=== PATIENT | female | born 1995 | race Caucasian/White ===

== ENCOUNTER → 2021-07-04 14:47 | Outpatient (CLI) | payer OTHER, SELFPAY ==
[2021-07-04 15:22] LABS: Add Manual Diff / Slide Review NO; Basophils Absolute Auto 0 /uL (0-100); Basophils Percent Auto 0.4 % (0-2); Eosinophils Absolute Auto 100 /uL (0-450); Eosinophils Percent Auto 0.6 % (2-4); Hematocrit 38.3 % (36-46); Hemoglobin 13.3 g/dL (12.0-16.0); Lymphocytes Absolute Auto 1800 /uL (1100-4500); Lymphocytes Percent Auto 22.9 % (25-40); Mean Corpuscular HGB Conc 34.8 % (30-36); Mean Corpuscular Hemoglobin 32.7 PG (26-34); Mean Corpuscular Volume 94.1 fL (80-100); Monocytes Absolute Auto 500 /uL (0-900); Monocytes Percent Auto 6.7 % (3-14); Neutrophils Absolute Auto 5500 /uL (1500-7000); Neutrophils Percent Auto 69.4 % (50-75); Platelet Count 307 X10^3/uL (150-400); Red Blood Cell Count 4.07 X10^6/uL (4.0-5.2); Red Cell Distribution Width 12.2 % (11.6-14.8); White Blood Cell Count 7.9 X10^3/uL (4.5-11.0)
[2021-07-04 15:41] LABS: Appearance Urine UA CLEAR; Bilirubin Urine UA NEGATIVE (NEGATIVE); Color Urine UA YELLOW; Glucose Urine UA NEGATIVE (Negative); Ketones Urine UA NEGATIVE (NEGATIVE); Leukocyte Esterase Urine UA NEGATIVE (NEGATIVE); Nitrite Urine UA NEGATIVE (Negative); Occult Blood Urine UA 2+ (Negative); Protein Urine UA NEGATIVE (Negative); Urobilinogen Urine UA 0.2 E.U./dL (0.2)
[2021-07-04 16:02] LABS: Amorphous Sediment Urine 1+; Bacteria Urine Moderate (10-30); Mucus Urine 1+ (Negative); RBC Urine 1-5/HPF (0-5/HPF); Squamous Epithelial Cell Urine 5-10 /HPF (0-5/HPF); WBC Urine 1-5/HPF (0-5/HPF)
[2021-07-04 16:05] LABS: Free T4, Direct Thyroxine 0.96 ng/dL (0.78-2.19)
[2021-07-04 16:19] LABS: Thyroid Stimulating Hormone 0.936 uIU/mL (0.47-4.68)
[2021-07-04 17:17] LABS: HIV 1 & 2 Ab/Ag 4th Gen Combo NEGATIVE (NEGATIVE); Hep C Virus Ab w/Reflex Quant NEGATIVE s/c (NEGATIVE); Hepatitis B Surface Antigen NEGATIVE s/c (NEGATIVE); Rubella Antibody IgG 11.9 IU/mL (>15)
[2021-07-05 08:30] LABS: RPR Screen Non Reactive (Non Reactive); Varicella IgG Antibody 1566 index (Immune >165)
== END ==
PROVIDERS: PCP Nurse Practitioner Family; Referring Provider Family Medicine; Visit Provider Family Medicine
DX: Z34.01 Encounter for supervision of normal first pregnancy, first trimester (principal)
CPT/HCPCS: 36415; 80055; 81003; 81015; 84439; 84443; 86787; 86803; 86850; 86900; 86901; 87077; 87086; 87389

== ENCOUNTER 2021-07-26 08:15 | Outpatient (RCR) | payer OTHER, SELFPAY ==
--- NOTE | 2021-07-22 14:14 | PT.OIE ---
Current Diagnoses Low back pain (07/22/21) Past Medical History (Last Updated 07/05/21 @ 14:11 by Samanta Louis MD) Anxiety (~2008) Chicken pox (~1993) Chronic lower back pain Chronic migraine Depression (~2008) Headache (~2007) Heavy menstrual period (~2006) History of colonoscopy (~03/2016) History of esophagogastroduodenoscopy (EGD) (~03/2016) History of placement of ear tubes (~1994) History of recurrent ear infection History of tonsillectomy and adenoidectomy (~02/2002) Hypothyroid (~2008) Painful menstrual periods (~2006) S/P lumpectomy, right breast (~2016) Seizure (~2005) Seizure (~2018) Stress fracture of right femur (~2015) Stress fracture, left foot, initial encounter for fracture (~2015) [place] teeth extracted (~10/2012) Past Surgical History (Last Updated 06/26/21 @ 22:23 by Padmaja Carter) Anesthesia 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 Address: [address] [place] [address] [place], [address] Email: Samanta Louis MD Attending Provider Physician Referring Provider Specialty: [facility] Address: [address] [place] [address], [place], [address] Email: [email or web address] Physical Therapy Initial Evaluation PT-OP-A Visit Information Start: 07/22/21 07:21 Freq: Status: Active Protocol: Document 07/22/21 07:30 AMB (Rec: 07/22/21 08:59 AMB [email or web address]) Out-Patient Physical Therapy Visit Information Visit Information Visit Type Initial Evaluation Visit Start Time 07:30 Visit Stop Time 08:15 Total Visit Minutes 45 Visit Number 1 PT-OP-B Current Condition Start: 07/22/21 07:21 Freq: Status: Active Protocol: Document 07/22/21 07:30 AMB (Rec: 07/22/21 08:01 AMB [id number]) Current Condition History of Current Condition Onset Date 6 weeks ago Current Complaints low back pain History of Current Condition 12 weeks . Back pain at night. At night can get up to 7-8/10 pain, during day more like 1-3. Rolling over increases the pain. Left radiating pain was present prepregnancy. Sitting increases pain 30 min to an hour. Twisting increases pain . Treatment Goals Patient/Caregiver Goals Decrease back pain, exercise without an increase in pain. Prior Functional Status Baseline Function- ADL's Independent Baseline Function- Mobility Independent Personal Factors Other Personal Factors That May Effect Currently , due in Therapy/Recovery January PT-OP-C Subjective Start: 07/22/21 07:21 Freq: Status: Active Protocol: Document 07/22/21 07:30 AMB (Rec: 07/22/21 08:59 AMB [email or web address]) Patient Questionnaires Oswestry Low Back Index Oswestry Score 28 Oswestry Impairment 20 to 39% Impaired (Score 20- 39) OP-PT Pain Assessment Comments Pain Comments 3/10 current, can get up to 6- 7 with rolling over in bed PT-OP-G Mobility & Gait Start: 07/22/21 07:21 Freq: Status: Active Protocol: Document 07/22/21 07:30 AMB (Rec: 07/22/21 08:59 AMB [email or web address]) OP Mobility Evaluation Bed Mobility Rolling pain with rolling from back to sides, has to bridge a little to get hips up even on firm surface OP Gait Assessment Comments Gait Comments WFL PT-OP-J Posture/Palpation/Skin Start: 07/22/21 07:21 Freq: Status: Active Protocol: Document 07/22/21 07:30 AMB (Rec: 07/22/21 08:59 AMB [email or web address]) Posture Evaluation Comments Posture Comments slight lumbar lordosis, tends to be hyper mobile in elbows/ knees Palpation Assessment Location One Palpation Location lumbar spine Palpation Findings Soft Tissue Tightness,Spasm, Muscle Guarding,Tenderness Palpation Details Tenderness at QLs bilaterally, tightness. Slightly elevated ASIS and medial malleolus on the left. PT-OP-K Range of Motion Start: 07/22/21 07:21 Freq: Status: Active Protocol: Document 07/22/21 07:30 AMB (Rec: 07/22/21 08:59 AMB [email or web address]) Lumbar Spine Range of Motion Lumbar Spine Active Percentage Testing Position Standing Flexion 100 Extension 100 Rotation Left 75 Rotation Right 50 Comments pain with end range extension and right rotation PT-OP-M Strength Start: 07/22/21 07:21 Freq: Status: Active Protocol: Document 07/22/21 07:30 AMB (Rec: 07/22/21 08:59 AMB [email or web address]) Hip Strength Hip Manual Muscle Testing Right Flexion (L2) 4+ Good+ Extension (S1) 4+ Good+ Abduction 4+ Good+ Left Flexion (L2) 4+ Good+ Extension (S1) 4+ Good+ Abduction 4+ Good+ PT-OP-Q Treatments Start: 07/22/21 07:21 Freq: Status: Active Protocol: Document 07/22/21 07:30 AMB (Rec: 07/22/21 08:59 AMB [email or web address]) Therapeutic Exercises Other Exercises 3 Other Exercise Name quadruped TA and pelvic floor contract Comments with alternating arms 2 Other Exercise Name cat cow Reps/Minutes 10x2 1 Other Exercise Name radha pose with sidebend Reps/Minutes 30x4 PT-OP-T Assessment and Plan Start: 07/22/21 07:21 Freq: Status: Active Protocol: Document 07/22/21 07:30 AMB (Rec: 07/22/21 08:59 AMB [email or web address]) Physical Therapy Assessment Rehab Potential Rehabilitation Potential Good Evaluation Complexity Number of Personal Factors/Comorbidities 1-2 Number of Body Systems Impaired 4 or More Clinical Presentation at Evaluation Evolving Impairments Impairments Activity Tolerance,Functional Mobility,Pain,ROM Goals Three Impairment ROM Short Term Goal (STG) Tawana will have normal lumbar /thoracic rotation. STG Duration 4 weeks Fpc Goal (LTG) Tawana will be able to reach across her body to reach for her water bottle without an increase in pain. LTG Duration 12 weeks Two Impairment HEP Short Term Goal (STG) Tawana will be independent with a HEP for core stabilization and appropriate stretching program. STG Duration 4 weeks One Impairment Bed mobility Short Term Goal (STG) Tawana will roll over in bed with 1/10 pain or less. STG Duration 4 weeks Cell Tower Climber Goal (LTG) Tawana will perform all bed mobility without back pain. LTG Duration 8 weeks Assessment Summary Assessment Tawana attends physical therapy with low back pain, worst with rolling over in bed . She has a history of back pain before becoming with radiating sx into the left buttock, but this is different. Does seem to be improving with heat. Tawana had signficant muscular tension in her bilateral quadratus lumborum. She tends to be fairly hypermobile baseline, and has likely already increased this. Educated her in the muscle guarding that can occur with increasing ligamentous laxity associated with . She had a large number of questions regarding exercise in which were answered. She will benefit from continued instruction in stretching and core stabilization as well as exercise in . Physical Therapy Plan Frequency and Duration Frequency of Treatment 1x/Week Duration of Treatment 12 weeks Plan of Care Start Date 07/22/21 Plan of Care End Date 10/14/21 Therapeutic Interventions Therapeutic Interventions Aquatic Therapy,Home Exercise Program,Joint Mobilizations, Manual Therapy,Neuromuscular Re-education,Self-Care/Home Management,Therapeutic Activities,Therapeutic Exercises Modalities Cold Pack/Ice Massage,Electric Stimulation,Hot Packs Next Visit Focus/Plan Next Note Type Treatment Note Next Visit Plan Work on core stabilization, QL stretching
--- NOTE | 2021-07-22 14:15 | PT.OPPOC ---
Physical, Occupational & Speech Therapy At [facility] Current Diagnoses Low back pain (07/22/21) Visit Care Team Role Provider Type JORGE Al Primary Care Provider Non-Staff Specialty: Family Practice Address: [place], [address] Email: Samanta Louis MD Attending Provider Physician Referring Provider Specialty: Family Practice Address: [address] [place] [address], [facility] [place], [address] Email: [email or web address] Plan Of Care PT-OP-T Assessment and Plan Start: 07/22/21 07:21 Freq: Status: Active Protocol: Document 07/22/21 07:30 AMB (Rec: 07/22/21 08:59 AMB [email or web address]) Physical Therapy Assessment Rehab Potential Rehabilitation Potential Good Evaluation Complexity Number of Personal Factors/Comorbidities 1-2 Number of Body Systems Impaired 4 or More Clinical Presentation at Evaluation Evolving Impairments Impairments Activity Tolerance,Functional Mobility,Pain,ROM Goals Three Impairment ROM Short Term Goal (STG) Tawana will have normal lumbar /thoracic rotation. STG Duration 4 weeks Carousel Attendant Goal (LTG) Tawana will be able to reach across her body to reach for her water bottle without an increase in pain. LTG Duration 12 weeks Two Impairment HEP Short Term Goal (STG) Tawana will be independent with a HEP for core stabilization and appropriate stretching program. STG Duration 4 weeks One Impairment Bed mobility Short Term Goal (STG) Tawana will roll over in bed with 1/10 pain or less. STG Duration 4 weeks Halfway Goal (LTG) Tawana will perform all bed mobility without back pain. LTG Duration 8 weeks Assessment Summary Assessment Tawana attends physical therapy with low back pain, worst with rolling over in bed . She has a history of back pain before becoming with radiating sx into the left buttock, but this is different. Does seem to be improving with heat. Tawana had significant muscular tension in her bilateral quadratus lumborum. She tends to be fairly hypermobile baseline, and has likely already increased this. Educated her in the muscle guarding that can occur with increasing ligamentous laxity associated with . She had a large number of questions regarding exercise in which were answered. She will benefit from continued instruction in stretching and core stabilization as well as exercise in . Physical Therapy Plan Frequency and Duration Frequency of Treatment 1x/Week Duration of Treatment 12 weeks Plan of Care Start Date 07/22/21 Plan of Care End Date 10/14/21 Therapeutic Interventions Therapeutic Interventions Aquatic Therapy,Home Exercise Program,Joint Mobilizations, Manual Therapy,Neuromuscular Re-education,Self-Care/Home Management,Therapeutic Activities,Therapeutic Exercises Modalities Cold Pack/Ice Massage,Electric Stimulation,Hot Packs Next Visit Focus/Plan Next Note Type Treatment Note Next Visit Plan Work on core stabilization, QL stretching Plan of Care Dates Plan of Care Start Date 07/22/21 Plan of Care End Date 10/14/21 Electronically Signed by: Roya Marshall, PT 07/22/21 [id number] Please Sign and Return: I have reviewed this Plan of Care and certify that the skilled therapy services above are required to meet the patient?s needs. Physician Signature Date Printed Name and Credentials Clinical Instructor Signature Printed Name and Credentials
--- NOTE | 2021-07-26 15:37 | PT.OTN ---
Current Diagnoses Low back pain (07/26/21) Physical Therapy Treatment Note PT-OP-A Visit Information Start: 07/22/21 07:21 Freq: Status: Active Protocol: Document 07/26/21 08:15 AMB (Rec: 07/26/21 09:04 AMB [id number]) Out-Patient Physical Therapy Visit Information Visit Information Visit Type Treatment Note Visit Start Time 08:15 Visit Stop Time 09:00 Total Visit Minutes 45 Visit Number 2 PT-OP-B Current Condition Start: 07/22/21 07:21 Freq: Status: Active Protocol: Document 07/22/21 07:30 AMB (Rec: 07/22/21 08:01 AMB [id number]) Current Condition History of Current Condition Onset Date 6 weeks ago Current Complaints low back pain History of Current Condition 12 weeks . Back pain at night. At night can get up to 7-8/10 pain, during day more like 1-3. Rolling over increases the pain. Left radiating pain was present prepregnancy. Sitting increases pain 30 min to an hour. Twisting increases pain . Treatment Goals Patient/Caregiver Goals Decrease back pain, exercise without an increase in pain. Prior Functional Status Baseline Function- ADL's Independent Baseline Function- Mobility Independent Personal Factors Other Personal Factors That May Effect Currently , due in Therapy/Recovery January PT-OP-C Subjective Start: 07/22/21 07:21 Freq: Status: Active Protocol: Document 07/26/21 08:15 AMB (Rec: 07/26/21 09:04 AMB [id number]) OP-PT Subjective Patient Comments Patient Comments Pt is noticing a bit of symptom improvement PT-OP-G Mobility & Gait Start: 07/22/21 07:21 Freq: Status: Active Protocol: Document 07/22/21 07:30 AMB (Rec: 07/22/21 08:59 AMB [email or web address]) OP Mobility Evaluation Bed Mobility Rolling pain with rolling from back to sides, has to bridge a little to get hips up even on firm surface OP Gait Assessment Comments Gait Comments WFL PT-OP-J Posture/Palpation/Skin Start: 07/22/21 07:21 Freq: Status: Active Protocol: Document 07/22/21 07:30 AMB (Rec: 07/22/21 08:59 AMB [email or web address]) Posture Evaluation Comments Posture Comments slight lumbar lordosis, tends to be hyper mobile in elbows/ knees Palpation Assessment Location One Palpation Location lumbar spine Palpation Findings Soft Tissue Tightness,Spasm, Muscle Guarding,Tenderness Palpation Details Tenderness at QLs bilaterally, tightness. Slightly elevated ASIS and medial malleolus on the left. PT-OP-K Range of Motion Start: 07/22/21 07:21 Freq: Status: Active Protocol: Document 07/22/21 07:30 AMB (Rec: 07/22/21 08:59 AMB [email or web address]) Lumbar Spine Range of Motion Lumbar Spine Active Percentage Testing Position Standing Flexion 100 Extension 100 Rotation Left 75 Rotation Right 50 Comments pain with end range extension and right rotation PT-OP-M Strength Start: 07/22/21 07:21 Freq: Status: Active Protocol: Document 07/22/21 07:30 AMB (Rec: 07/22/21 08:59 AMB [email or web address]) Hip Strength Hip Manual Muscle Testing Right Flexion (L2) 4+ Good+ Extension (S1) 4+ Good+ Abduction 4+ Good+ Left Flexion (L2) 4+ Good+ Extension (S1) 4+ Good+ Abduction 4+ Good+ PT-OP-Q Treatments Start: 07/22/21 07:21 Freq: Status: Active Protocol: Document 07/26/21 08:15 AMB (Rec: 07/26/21 15:37 AMB [email or web address]) Therapeutic Exercises Supine Exercises 1 Supine Exercise Name march with TA stabilization Sidelying Exercises 1 Sidelying Exercise Name QL stretch Reps/Minutes 30x2 Other Exercises 3 Other Exercise Name quadruped TA and pelvic floor contract Comments with alternating arms 2 Other Exercise Name cat cow Reps/Minutes 10x2 1 Other Exercise Name radha pose with sidebend Reps/Minutes 30x4 PT-OP-T Assessment and Plan Start: 07/22/21 07:21 Freq: Status: Active Protocol: Document 07/26/21 08:15 AMB (Rec: 07/26/21 09:04 AMB [id number]) Physical Therapy Assessment Assessment Summary Assessment Tawana is going on a trip to visit family so won't be available for appointments for a while. Exercises are going well, continue to progress QL stretching and core stability . Physical Therapy Plan Next Visit Focus/Plan Next Note Type Treatment Note Next Visit Plan Work on core stabilization, QL stretching
--- NOTE | 2021-08-29 14:56 | PT.OTN ---
Current Diagnoses Low back pain (08/29/21) Physical Therapy Treatment Note PT-OP-A Visit Information Start: 07/22/21 07:21 Freq: Status: Active Protocol: Document 08/29/21 13:00 AMB (Rec: 08/29/21 13:45 AMB [id number]) Out-Patient Physical Therapy Visit Information Visit Information Visit Type Treatment Note Visit Start Time 13:00 Visit Stop Time 13:45 Total Visit Minutes 45 Visit Number 3 PT-OP-B Current Condition Start: 07/22/21 07:21 Freq: Status: Active Protocol: Document 07/22/21 07:30 AMB (Rec: 07/22/21 08:01 AMB [id number]) Current Condition History of Current Condition Onset Date 6 weeks ago Current Complaints low back pain History of Current Condition 12 weeks . Back pain at night. At night can get up to 7-8/10 pain, during day more like 1-3. Rolling over increases the pain. Left radiating pain was present prepregnancy. Sitting increases pain 30 min to an hour. Twisting increases pain . Treatment Goals Patient/Caregiver Goals Decrease back pain, exercise without an increase in pain. Prior Functional Status Baseline Function- ADL's Independent Baseline Function- Mobility Independent Personal Factors Other Personal Factors That May Effect Currently , due in Therapy/Recovery January PT-OP-C Subjective Start: 07/22/21 07:21 Freq: Status: Active Protocol: Document 08/29/21 13:00 AMB (Rec: 08/29/21 13:45 AMB [id number]) OP-PT Subjective Patient Comments Patient Comments LBP with going down into the left thigh. Rolling over in bed. PT-OP-G Mobility & Gait Start: 07/22/21 07:21 Freq: Status: Active Protocol: Document 07/22/21 07:30 AMB (Rec: 07/22/21 08:59 AMB [email or web address]) OP Mobility Evaluation Bed Mobility Rolling pain with rolling from back to sides, has to bridge a little to get hips up even on firm surface OP Gait Assessment Comments Gait Comments WFL PT-OP-J Posture/Palpation/Skin Start: 07/22/21 07:21 Freq: Status: Active Protocol: Document 07/22/21 07:30 AMB (Rec: 07/22/21 08:59 AMB [email or web address]) Posture Evaluation Comments Posture Comments slight lumbar lordosis, tends to be hyper mobile in elbows/ knees Palpation Assessment Location One Palpation Location lumbar spine Palpation Findings Soft Tissue Tightness,Spasm, Muscle Guarding,Tenderness Palpation Details Tenderness at QLs bilaterally, tightness. Slightly elevated ASIS and medial malleolus on the left. PT-OP-K Range of Motion Start: 07/22/21 07:21 Freq: Status: Active Protocol: Document 07/22/21 07:30 AMB (Rec: 07/22/21 08:59 AMB [email or web address]) Lumbar Spine Range of Motion Lumbar Spine Active Percentage Testing Position Standing Flexion 100 Extension 100 Rotation Left 75 Rotation Right 50 Comments pain with end range extension and right rotation PT-OP-M Strength Start: 07/22/21 07:21 Freq: Status: Active Protocol: Document 07/22/21 07:30 AMB (Rec: 07/22/21 08:59 AMB [email or web address]) Hip Strength Hip Manual Muscle Testing Right Flexion (L2) 4+ Good+ Extension (S1) 4+ Good+ Abduction 4+ Good+ Left Flexion (L2) 4+ Good+ Extension (S1) 4+ Good+ Abduction 4+ Good+ PT-OP-Q Treatments Start: 07/22/21 07:21 Freq: Status: Active Protocol: Document 08/29/21 13:00 AMB (Rec: 08/29/21 13:45 AMB [id number]) Therapeutic Exercises Sitting Exercises 1 Sitting Exercise Name modified pigeon Reps/Minutes 30x2 Other Exercises 4 Other Exercise Name hip waggle Reps/Minutes 30 1 Other Exercise Name radha pose with sidebend Reps/Minutes 30x4 Manual Therapy Treatment Soft Tissue Mobilization L glutes Mobilization Type Myofascial Release,Trigger Point Release Intensity/Depth Moderate Body Position Sidelying Comments tenderness over L piriformis Manual Traction long axis Details L Body Position Hooklying Comments pt has decreased pain afterwards. PT-OP-T Assessment and Plan Start: 07/22/21 07:21 Freq: Status: Active Protocol: Document 08/29/21 14:51 AMB (Rec: 08/29/21 14:53 AMB [email or web address]) Physical Therapy Assessment Goals Three Impairment ROM Short Term Goal (STG) Tawana will have normal lumbar /thoracic rotation. STG Duration 4 weeks Mcc Goal (LTG) Tawana will be able to reach across her body to reach for her water bottle without an increase in pain. LTG Duration 12 weeks Two Impairment HEP Short Term Goal (STG) Tawana will be independent with a HEP for core stabilization and appropriate stretching program. STG Duration 4 weeks One Impairment Bed mobility Short Term Goal (STG) Tawana will roll over in bed with 1/10 pain or less. STG Duration 4 weeks Automotive Title Clerk Goal (LTG) Tawana will perform all bed mobility without back pain. LTG Duration 8 weeks Assessment Summary Assessment Tawana's original pain complaints have improved, she can roll over in bed, but is having more sciatic pain on the left now. Physical Therapy Plan Next Visit Focus/Plan Next Note Type Treatment Note Next Visit Plan Work on core stabilization, QL stretching
--- NOTE | 2021-09-05 15:51 | PT.OTN ---
Current Diagnoses Low back pain (09/05/21) Physical Therapy Treatment Note PT-OP-A Visit Information Start: 07/22/21 07:21 Freq: Status: Active Protocol: Document 09/05/21 12:56 AMB (Rec: 09/05/21 13:55 AMB [id number]) Out-Patient Physical Therapy Visit Information Visit Information Visit Type Treatment Note Visit Start Time 13:00 Visit Stop Time 13:45 Total Visit Minutes 45 Visit Number 4 PT-OP-B Current Condition Start: 07/22/21 07:21 Freq: Status: Active Protocol: Document 07/22/21 07:30 AMB (Rec: 07/22/21 08:01 AMB [id number]) Current Condition History of Current Condition Onset Date 6 weeks ago Current Complaints low back pain History of Current Condition 12 weeks . Back pain at night. At night can get up to 7-8/10 pain, during day more like 1-3. Rolling over increases the pain. Left radiating pain was present prepregnancy. Sitting increases pain 30 min to an hour. Twisting increases pain . Treatment Goals Patient/Caregiver Goals Decrease back pain, exercise without an increase in pain. Prior Functional Status Baseline Function- ADL's Independent Baseline Function- Mobility Independent Personal Factors Other Personal Factors That May Effect Currently , due in Therapy/Recovery January PT-OP-C Subjective Start: 07/22/21 07:21 Freq: Status: Active Protocol: Document 09/05/21 13:00 AMB (Rec: 09/06/21 15:50 AMB [email or web address]) OP-PT Subjective Patient Comments Patient Comments Pt is doing well, feels like sciatica sx are better and can sit for about an hour without increasing sx after last visit. PT-OP-G Mobility & Gait Start: 07/22/21 07:21 Freq: Status: Active Protocol: Document 07/22/21 07:30 AMB (Rec: 07/22/21 08:59 AMB [email or web address]) OP Mobility Evaluation Bed Mobility Rolling pain with rolling from back to sides, has to bridge a little to get hips up even on firm surface OP Gait Assessment Comments Gait Comments WFL PT-OP-J Posture/Palpation/Skin Start: 07/22/21 07:21 Freq: Status: Active Protocol: Document 07/22/21 07:30 AMB (Rec: 07/22/21 08:59 AMB [email or web address]) Posture Evaluation Comments Posture Comments slight lumbar lordosis, tends to be hyper mobile in elbows/ knees Palpation Assessment Location One Palpation Location lumbar spine Palpation Findings Soft Tissue Tightness,Spasm, Muscle Guarding,Tenderness Palpation Details Tenderness at QLs bilaterally, tightness. Slightly elevated ASIS and medial malleolus on the left. PT-OP-K Range of Motion Start: 07/22/21 07:21 Freq: Status: Active Protocol: Document 07/22/21 07:30 AMB (Rec: 07/22/21 08:59 AMB [email or web address]) Lumbar Spine Range of Motion Lumbar Spine Active Percentage Testing Position Standing Flexion 100 Extension 100 Rotation Left 75 Rotation Right 50 Comments pain with end range extension and right rotation PT-OP-M Strength Start: 07/22/21 07:21 Freq: Status: Active Protocol: Document 07/22/21 07:30 AMB (Rec: 07/22/21 08:59 AMB [email or web address]) Hip Strength Hip Manual Muscle Testing Right Flexion (L2) 4+ Good+ Extension (S1) 4+ Good+ Abduction 4+ Good+ Left Flexion (L2) 4+ Good+ Extension (S1) 4+ Good+ Abduction 4+ Good+ PT-OP-Q Treatments Start: 07/22/21 07:21 Freq: Status: Active Protocol: Document 09/05/21 13:00 AMB (Rec: 09/06/21 15:50 AMB [email or web address]) Therapeutic Exercises Supine Exercises 1 Supine Exercise Name supine sciatic glide Comments increased numbness with ankle pump Sidelying Exercises 2 Sidelying Exercise Name clamshell Reps/Minutes 30x2 1 Sidelying Exercise Name QL stretch Reps/Minutes 30x2 Other Exercises 4 Other Exercise Name hip waggle Reps/Minutes 30 3 Other Exercise Name quadruped TA and pelvic floor contract Comments with alternating arms 2 Other Exercise Name cat cow Reps/Minutes 10x2 Comments to neutral only 1 Other Exercise Name radha pose with sidebend Reps/Minutes 30x4 Manual Therapy Treatment Soft Tissue Mobilization L glutes Mobilization Type Myofascial Release,Trigger Point Release Intensity/Depth Moderate Body Position Sidelying Comments tenderness over L piriformis PT-OP-T Assessment and Plan Start: 07/22/21 07:21 Freq: Status: Active Protocol: Document 09/05/21 13:00 AMB (Rec: 09/06/21 15:50 AMB [email or web address]) Physical Therapy Assessment Assessment Summary Assessment If Tawana continues to feel good we could consider d/c soon. she does continue to have radiating left side pain, but her rolling over in bed is going well. She has done an elliptical workout and done a yoga video and both of those were fine. Physical Therapy Plan Next Visit Focus/Plan Next Note Type Treatment Note Next Visit Plan Work on core stabilization, QL stretching
--- NOTE | 2021-09-20 16:00 | PT.OTN ---
Current Diagnoses Low back pain (09/20/21) Physical Therapy Treatment Note PT-OP-A Visit Information Start: 07/22/21 07:21 Freq: Status: Active Protocol: Document 09/20/21 08:04 AMB (Rec: 09/20/21 08:15 AMB [id number]) Out-Patient Physical Therapy Visit Information Visit Information Visit Type Treatment Note Visit Start Time 07:30 Visit Stop Time 08:15 Total Visit Minutes 45 Visit Number 5 PT-OP-B Current Condition Start: 07/22/21 07:21 Freq: Status: Active Protocol: Document 07/22/21 07:30 AMB (Rec: 07/22/21 08:01 AMB [id number]) Current Condition History of Current Condition Onset Date 6 weeks ago Current Complaints low back pain History of Current Condition 12 weeks . Back pain at night. At night can get up to 7-8/10 pain, during day more like 1-3. Rolling over increases the pain. Left radiating pain was present prepregnancy. Sitting increases pain 30 min to an hour. Twisting increases pain . Treatment Goals Patient/Caregiver Goals Decrease back pain, exercise without an increase in pain. Prior Functional Status Baseline Function- ADL's Independent Baseline Function- Mobility Independent Personal Factors Other Personal Factors That May Effect Currently , due in Therapy/Recovery January PT-OP-C Subjective Start: 07/22/21 07:21 Freq: Status: Active Protocol: Document 09/20/21 07:30 AMB (Rec: 09/21/21 15:58 AMB [email or web address]) OP-PT Subjective Patient Comments Patient Comments Pt is doing well, does have some diastasis recti pain, but otherwise no back pain PT-OP-G Mobility & Gait Start: 07/22/21 07:21 Freq: Status: Active Protocol: Document 07/22/21 07:30 AMB (Rec: 07/22/21 08:59 AMB [email or web address]) OP Mobility Evaluation Bed Mobility Rolling pain with rolling from back to sides, has to bridge a little to get hips up even on firm surface OP Gait Assessment Comments Gait Comments WFL PT-OP-J Posture/Palpation/Skin Start: 07/22/21 07:21 Freq: Status: Active Protocol: Document 07/22/21 07:30 AMB (Rec: 07/22/21 08:59 AMB [email or web address]) Posture Evaluation Comments Posture Comments slight lumbar lordosis, tends to be hyper mobile in elbows/ knees Palpation Assessment Location One Palpation Location lumbar spine Palpation Findings Soft Tissue Tightness,Spasm, Muscle Guarding,Tenderness Palpation Details Tenderness at QLs bilaterally, tightness. Slightly elevated ASIS and medial malleolus on the left. PT-OP-K Range of Motion Start: 07/22/21 07:21 Freq: Status: Active Protocol: Document 07/22/21 07:30 AMB (Rec: 07/22/21 08:59 AMB [email or web address]) Lumbar Spine Range of Motion Lumbar Spine Active Percentage Testing Position Standing Flexion 100 Extension 100 Rotation Left 75 Rotation Right 50 Comments pain with end range extension and right rotation PT-OP-M Strength Start: 07/22/21 07:21 Freq: Status: Active Protocol: Document 07/22/21 07:30 AMB (Rec: 07/22/21 08:59 AMB [email or web address]) Hip Strength Hip Manual Muscle Testing Right Flexion (L2) 4+ Good+ Extension (S1) 4+ Good+ Abduction 4+ Good+ Left Flexion (L2) 4+ Good+ Extension (S1) 4+ Good+ Abduction 4+ Good+ PT-OP-Q Treatments Start: 07/22/21 07:21 Freq: Status: Active Protocol: Document 09/20/21 07:30 AMB (Rec: 09/21/21 15:58 AMB [email or web address]) Therapeutic Exercises Other Exercises 3 Other Exercise Name quadruped TA and pelvic floor contract Comments with alternating arms 2 Other Exercise Name cat cow Reps/Minutes 10x2 Comments to neutral only Manual Therapy Treatment Taping 1 Body Location abdomen Type of Tape Kinesio Tape Comments for diastasis, 2 Is PT-OP-T Assessment and Plan Start: 07/22/21 07:21 Freq: Status: Active Protocol: Document 09/20/21 08:04 AMB (Rec: 09/20/21 08:15 AMB [id number]) Physical Therapy Assessment Goals Three Impairment ROM Short Term Goal (STG) Tawana will have normal lumbar /thoracic rotation. STG Duration MET Care Home Goal (LTG) Tawana will be able to reach across her body to reach for her water bottle without an increase in pain. LTG Duration MET Two Impairment HEP Short Term Goal (STG) Tawana will be independent with a HEP for core stabilization and appropriate stretching program. STG Duration MET One Impairment Bed mobility Short Term Goal (STG) Tawana will roll over in bed with 1/10 pain or less. STG Duration MET Javascript Engineer Goal (LTG) Tawana will perform all bed mobility without back pain. LTG Duration MET Assessment Summary Assessment Tawana met all of her goals, she did have concerns about diastasis recti today, so was educated in how to progress her exercise throughout her and post , although if she has specific concerns post she could always return. Did show her kineseiotape for diastasis and educated further in TA stabilization. Pt discharged as she has met her goals. Physical Therapy Plan Discharge Physical Therapy Discharge Reasons Goals Met
--- NOTE | 2021-09-21 16:00 | PT.OPDS ---
Current Diagnoses Low back pain (09/20/21) Visit Care Team Role Provider Type JORGE Al Primary Care Provider Non-Staff Specialty: Family Practice Address: [address] , [place], [address] Email: Samanta Louis MD Attending Provider Physician Referring Provider Specialty: [facility] Practice Address: [facility], [place], [address] Email: [email or web address] Visit Number Visit Number 5 Discharge Summary PT-OP-B Current Condition Start: 07/22/21 07:21 Freq: Status: Active Protocol: Document 07/22/21 07:30 AMB (Rec: 07/22/21 08:01 AMB [id number]) Current Condition History of Current Condition Onset Date 6 weeks ago Current Complaints low back pain History of Current Condition 12 weeks . Back pain at night. At night can get up to 7-8/10 pain, during day more like 1-3. Rolling over increases the pain. Left radiating pain was present prepregnancy. Sitting increases pain 30 min to an hour. Twisting increases pain . Treatment Goals Patient/Caregiver Goals Decrease back pain, exercise without an increase in pain. Prior Functional Status Baseline Function- ADL's Independent Baseline Function- Mobility Independent Personal Factors Other Personal Factors That May Effect Currently , due in Therapy/Recovery January PT-OP-C Subjective Start: 07/22/21 07:21 Freq: Status: Active Protocol: Document 09/20/21 07:30 AMB (Rec: 09/21/21 15:58 AMB [email or web address]) OP-PT Subjective Patient Comments Patient Comments Pt is doing well, does have some diastasis recti pain, but otherwise no back pain PT-OP-G Mobility & Gait Start: 07/22/21 07:21 Freq: Status: Active Protocol: Document 07/22/21 07:30 AMB (Rec: 07/22/21 08:59 AMB [email or web address]) OP Mobility Evaluation Bed Mobility Rolling pain with rolling from back to sides, has to bridge a little to get hips up even on firm surface OP Gait Assessment Comments Gait Comments WFL PT-OP-J Posture/Palpation/Skin Start: 07/22/21 07:21 Freq: Status: Active Protocol: Document 07/22/21 07:30 AMB (Rec: 07/22/21 08:59 AMB [email or web address]) Posture Evaluation Comments Posture Comments slight lumbar lordosis, tends to be hyper mobile in elbows/ knees Palpation Assessment Location One Palpation Location lumbar spine Palpation Findings Soft Tissue Tightness,Spasm, Muscle Guarding,Tenderness Palpation Details Tenderness at QLs bilaterally, tightness. Slightly elevated ASIS and medial malleolus on the left. PT-OP-K Range of Motion Start: 07/22/21 07:21 Freq: Status: Active Protocol: Document 07/22/21 07:30 AMB (Rec: 07/22/21 08:59 AMB [email or web address]) Lumbar Spine Range of Motion Lumbar Spine Active Percentage Testing Position Standing Flexion 100 Extension 100 Rotation Left 75 Rotation Right 50 Comments pain with end range extension and right rotation PT-OP-M Strength Start: 07/22/21 07:21 Freq: Status: Active Protocol: Document 07/22/21 07:30 AMB (Rec: 07/22/21 08:59 AMB [email or web address]) Hip Strength Hip Manual Muscle Testing Right Flexion (L2) 4+ Good+ Extension (S1) 4+ Good+ Abduction 4+ Good+ Left Flexion (L2) 4+ Good+ Extension (S1) 4+ Good+ Abduction 4+ Good+ PT-OP-T Assessment and Plan Start: 07/22/21 07:21 Freq: Status: Active Protocol: Document 09/20/21 08:04 AMB (Rec: 09/20/21 08:15 AMB [id number]) Physical Therapy Assessment Goals Three Impairment ROM Short Term Goal (STG) Tawana will have normal lumbar /thoracic rotation. STG Duration MET Usp Goal (LTG) Tawana will be able to reach across her body to reach for her water bottle without an increase in pain. LTG Duration MET Two Impairment HEP Short Term Goal (STG) Tawana will be independent with a HEP for core stabilization and appropriate stretching program. STG Duration MET One Impairment Bed mobility Short Term Goal (STG) Tawana will roll over in bed with 1/10 pain or less. STG Duration MET Call Center Team Leader Goal (LTG) Tawana will perform all bed mobility without back pain. LTG Duration MET Assessment Summary Assessment Tawana met all of her goals, she did have concerns about diastasis recti today, so was educated in how to progress her exercise throughout her and post , although if she has specific concerns post she could always return. Did show her kineseiotape for diastasis and educated further in TA stabilization. Pt discharged as she has met her goals. Physical Therapy Plan Discharge Physical Therapy Discharge Reasons Goals Met
== END 2021-08-25 09:00 ==
LOC: PHYS 08:15
PROVIDERS: PCP Nurse Practitioner Family; Referring Provider Family Medicine; Visit Provider Family Medicine
DX: Z00.00 Encounter for general adult medical examination without abnormal findings (principal)
CPT/HCPCS: 97110; 97140; 97162

== ENCOUNTER → 2021-09-09 12:31 | Outpatient (CLI) | payer OTHER, SELFPAY ==
--- NOTE | 2021-09-09 12:32 | DI.US.S_ITS ---
PROCEDURE: US OB >= 14 WEEKS FETUS INDICATIONS: ANATOMY OUTSIDE/PRIOR DATING DATA: Last menstrual period (LMP): Unknown . LMP-based estimated date of delivery (YAKOV): No known . First dating scan (date and location): 777674 . Estimated date of delivery (YAKOV) from first dating scan: 02/02/2022 . TECHNIQUE: Real-time scanning was performed of the fetus, with image documentation and biometric measurements. Endovaginal scanning: None COMPARISON: None. FINDINGS: General: A single living intrauterine gestation is present. Presentation: Variable. Placenta: Placental position is posterior , without previa. Amniotic fluid index: 14.5 cm, normal range is 5-24 cm. heart rate: 155 beats per minute Maternal cervical canal: 5.4 cm long. Normal lower limit is 2.5 cm. biometrics: Biparietal diameter: 4.5 cm, 19 week 4 day Head circumference: 16.4 cm, 19 week 1 day Abdominal circumference: 14.4 cm, 19 week 5 day Femur length: 2.7 cm, 18 week 2 day Estimated gestational age from initial scan: not applicable. Composite gestational age from present scan: 19 week 1 day Estimated weight and percentile: 272 g Measurement variability for biometric dating: +/- 7 days from 14 weeks to 15 weeks 6 days gestation, +/- 10 days from 16 weeks to 21 weeks 6 days gestation, +/- 2 weeks from 22 weeks to 27 weeks 6 days gestation, +/- 3 weeks for 28 weeks gestation or later. weight reference: 4500 g or EFW >90/95% is considered macrosomia or large for gestational age. EFW <10% is small for gestational age. EFW 5% or less is considered intra-uterine growth restriction. Anatomic survey: Neuro: Ventricles are non-dilated at less than 10 mm. Cisterna magna is normal at 3-11 mm. Cerebellum is normal in size and morphology. Nuchal skin fold: Normal at less than 6 mm between 14-21 weeks gestational age. Face: Nose and lips, facial profile are normal. Spine: No evidence for spina bifida. Heart: 4-chambered heart is present, with normal ventricular outflow tracts. Diaphragm: Diaphragm is intact. Stomach: Left-sided stomach is present. Kidneys: Right renal pelvis measures 4.3 mm. No left hydronephrosis. Normal is less than 5 mm in 2nd trimester, less than 7 mm in 3rd trimester. Cord: 3-vessel cord has orthotopic insertion. Bladder: Normal in size. Extremities: All 4 extremities identified. IMPRESSION: Single live intrauterine consistent with 19 week 1 day gestation Right renal pelvicaliectasis measures 4.3 mm. Consider 3rd trimester ultrasound to reassess Approved by: Jose Bellamy M.D. on 09/09/2021 at 17:21
== END ==
PROVIDERS: PCP Nurse Practitioner Family; Referring Provider Family Medicine; Visit Provider Family Medicine
DX: Z36.89 Encounter for other specified antenatal screening (principal); Z3A.19 19 weeks gestation of pregnancy
CPT/HCPCS: 76811

== ENCOUNTER 2021-11-17 01:52 | Emergency (ER) | payer OTHER, SELFPAY ==
[2021-11-17 02:00] VITALS: BP 116/62; PULSE 100; RESP 20; TEMP 36.3; O2SAT 96; BMI 29.0
--- NOTE | 2021-11-17 02:14 | ED_ITS ---
HPI - General Adult General Chief complaint: OB/Uterine Contractions Stated complaint: nausea/painful cramping x1 day Time Seen by Provider: 11/17/21 01:55 Source: patient Mode of arrival: Ambulatory History of Present Illness HPI narrative: Patient is a 26-year-old otherwise healthy female. She is a at almost 29 weeks EGA. Has had an uncomplicated up to this point. Approximately 6 hours ago patient had 1 episode where she vomited multiple times. Since that time she has felt nauseous. Denies cramping but has overall abdominal discomfort which she describes as a feeling of almost wanting to vomit. No fevers. No urinary symptoms. No vaginal bleeding. No vaginal discharge. She is constipated has been constipated throughout . Has not tried anything for symptoms prior to arrival. Related Data Home Medications Medication Instructions Recorded Confirmed epinephrine 0.3 mg/0.3 mL 0.3 mg IM Q5-15M PRN 06/22/21 09/09/21 injection, auto-injector (EpiPen 2-Reinaldo) Previous Rx's Medication Instructions Recorded prenat.vits,angel,ard-[id number] 1 tab PO DAILY #90 tab 07/04/21 hydroxyzine HCl 25 mg tablet 25 mg PO BEDTIME #30 tab 09/09/21 Allergies Allergy/AdvReac Type Severity Reaction Status Date / Time amoxicillin Allergy Intermediate Rash and Verified 09/09/21 13:54 Hives to neck : no trouble breathing Penicillins Allergy Intermediate Rash and Verified 09/09/21 13:54 Hives to neck : no trouble breathing acetaminophen [From Percocet] AdvReac Severe Severe Verified 09/09/21 13:54 vomiting diphenhydramine AdvReac Severe Racing Verified 09/09/21 13:54 [From Benadryl] heart oxycodone [From Percocet] AdvReac Severe Severe Verified 09/09/21 13:54 vomiting jessica Allergy Severe Anaphylaxis Uncoded 09/09/21 13:54 has an Epi-pen Review of Systems Constitutional Constitutional: Denies fever(s) Cardiovascular Cardiovascular: Reports system reviewed and no additional complaints, except as documented Respiratory Respiratory: Reports system reviewed and no additional complaints, except as documented Gastrointestinal Gastrointestinal: Reports as per HPI and Reports system reviewed and no additional complaints, except as documented Genitourinary Genitourinary: Reports system reviewed and no additional complaints, except as documented and Reports as per HPI Integumentary/Breasts Skin/Breast: Reports system reviewed and no additional complaints, except as documented Neurologic Neurologic: Reports system reviewed and no additional complaints, except as documented Hematologic/Lymphatic On Anticoagulants: No Patient History Medical History Anxiety (~2008) Chicken pox (~1993) Chronic lower back pain Chronic migraine Depression (~2008) Headache (~2007) Heavy menstrual period (~2006) History of recurrent ear infection Hypothyroid (~2008) Painful menstrual periods (~2006) Seizure (~2005) Seizure (~2018) Stress fracture of right femur (~2015) Stress fracture, left foot, initial encounter for fracture (~2015) Surgical History (Updated 06/26/21 @ 22:23 by Padmaja Carter) Anesthesia 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) History of colonoscopy (~03/2016) History of esophagogastroduodenoscopy (EGD) (~03/2016) History of placement of ear tubes (~1994) History of tonsillectomy and adenoidectomy (~02/2002) S/P lumpectomy, right breast (~2016) [place] teeth extracted (~10/2012) Family History (Updated 06/26/21 @ 22:26 by Padmaja Carter) Father Corneal transplant failure Alcohol abuse by father Depression Heavy smoker Mental health problem Mother Hypertension DVT (deep venous thrombosis) Endometriosis Depression Heavy smoker Hypothyroid Mental health problem Grandfather Alcohol addiction Melanoma Neuropathy Heavy smoker Cancer Hypertension Grandmother Diabetes mellitus Hypertension Type 2 diabetes mellitus Heavy smoker Hypothyroid Grandfather Family history of alcohol abuse Alcohol addiction Dementia Heavy smoker Grandmother Blood clotting disorder Hypercoagulable state Hypertension Heavy smoker Brother Asthma Brother Depression Anxiety Family/Other Hypothyroid Family/Other Cancer Throat cancer Social History marital status: household members: spouse lives independently: Yes housing: house pets and animals: Yes (X 1 dog) education level: master's degree occupational status: employed current occupational exposures/hazards: Yes special bia needs: No Smoking Status: Never smoker second hand exposure: No ( smokes - working on quitting. Some growing up but not currently) alcohol intake: former substance use type: does not use Smoking Status: Never smoker Substance Use Type: does not use Exam Initial Vital Signs Initial Vital Signs: Vital Signs Temperature 97.4 F L 11/17/21 02:00 Pulse Rate 100 H 11/17/21 02:00 Respiratory Rate 20 11/17/21 02:00 Blood Pressure 116/62 11/17/21 02:00 Pulse Oximetry 96 11/17/21 02:00 Const General: cooperative and comfortable HENMT Head: normal to inspection and normocephalic Resp Effort & Inspection: normal respiratory effort Auscultation: clear to auscultation bilaterally Cardio Rate: regular rate Rhythm: regular rhythm GI Palpation: No tender Other: Gravid abdomen Neuro General: patient alert, patient awake and moves all extremities Extrem General: normal to inspection and capillary refill normal Psych Appearance: grossly normal and well kempt Course Orders Ordered: Discontinued Medications Al Hydrox/Mg Hydrox/Simethicone (Mag Hydrox/Alum/Simeth 30 Ml Udc) 30 ml PO NOW ONE Stop: 11/17/21 02:58 Last Admin: 11/17/21 03:04 Dose: 30 ml Documented by: KEISHA Ondansetron HCl (Ondansetron 4 Mg Odt) 4 mg PO NOW ONE Stop: 11/17/21 02:14 Last Admin: 11/17/21 02:18 Dose: 4 mg Documented by: DEB Ondansetron HCl (Ondansetron 4 Mg Odt Prepack) 1 bottle MISC SEEINSTR ONE Stop: 11/17/21 02:58 Last Admin: 11/17/21 03:04 Dose: 1 bottle Documented by: KEISHA Vital Signs Vital signs: Vital Signs - 8 hr 11/17/21 02:00 11/17/21 04:08 Temperature 97.4 F L Pulse Rate 100 H Respiratory Rate 20 96 H Blood Pressure 116/62 116/61 Pulse Oximetry 96 18 L Medical Decision Making Lab Data Labs: Urine Dip Bedside Urine Glucose Negative Bedside Urine Bilirubin - Negative Bedside Urine Ketone - Negative Urine Specific [place] 1.015 Bedside Urine Occult Blood +/- Bedside Urine pH 7.5 Bedside Urine Protein - Negative Bedside Urine Urobilinogen - Negative Bedside Urine Nitrite - Negative Bedside Urine Leukocytes - Negative Esterase Point of care testing: Urine Dip Bedside Urine Glucose Negative Bedside Urine Bilirubin - Negative Bedside Urine Ketone - Negative Urine Specific [place] 1.015 Bedside Urine Occult Blood +/- Bedside Urine pH 7.5 Bedside Urine Protein - Negative Bedside Urine Urobilinogen - Negative Bedside Urine Nitrite - Negative Bedside Urine Leukocytes - Negative Esterase MDM Narrative Medical decision making narrative: Patient has a benign abdominal exam. Afebrile. Urinalysis shows no signs of infection. Initial plan was for patient to go to the Labor and delivery after discharge from the emergency department to be further evaluated with a nonstress test. Labor and delivery was full on had no beds so they came to the emergency department and she had a nonstress test performed here. There was no signs of any contractions. She did tolerate oral intake. Will discharge home with nausea medication. I feel that we can hold on further workup to include any radiologic studies for now. She was given return precautions and follow-up instructions. She expressed understanding and agreement. Discharge Plan Departure Patient Disposition: Home Clinical Impression: , Nausea, Abdominal cramping Instructions: DI for -- Discomforts and Remedies Activity Restrictions/Additional Instructions: The nonstress test here in the emergency department is appropriate. There are no signs of contractions. Urinalysis did not show any signs of infection. I do recommend that you eat a bland diet in use the nausea medicine as needed. Sure to increase your fluid intake. Return to the emergency department for any new or worsening symptoms. Prescriptions: No Action prenat.vits,angel,kgy-kjkf-inetr Tablet 1 tab PO DAILY Qty: 90 3RF hydroxyzine HCl 25 mg tablet 25 mg PO BEDTIME Qty: 30 1RF epinephrine [EpiPen 2-Reinaldo] 0.3 mg/0.3 mL auto-injector 0.3 mg IM Q5-15M PRN0RF Rx Instructions: do not exceed 3 doses per episode Referrals: Yaneth Chacko ARNP [Primary Care Provider] -
[2021-11-17] MEDS: ONDANSETRON 4 MG ODT PO (02:18)
[2021-11-17] MEDS: MAG HYDROX/ALUM/SIMETH 30 ML UDC PO (03:04)
[2021-11-17] MEDS: ONDANSETRON 4 MG ODT PREPACK 1 BOTTLE MISC (03:04)
--- NOTE | 2021-11-17 03:57 | PC.NURSE ---
Nst completed Fhr 145 min/mod ephraim accells [id number]'s 30-35 sec, BP 107/67-87 pulse. Abd soft on palp no ctx's noted.
[2021-11-17 04:08] VITALS: BP 116/61; RESP 96; O2SAT 18
== END 2021-11-17 04:09 | disposition home or self-care (01) ==
PROVIDERS: Emergency Provider Emergency Medicine; PCP Nurse Practitioner Family
DX: O21.0 Mild hyperemesis gravidarum (principal); O26.893 Other specified pregnancy related conditions, third trimester; R10.9 Unspecified abdominal pain; Z3A.29 29 weeks gestation of pregnancy
CPT/HCPCS: 81003; 99283

== ENCOUNTER → 2021-11-24 15:50 | Outpatient (CLI) | payer OTHER, SELFPAY ==
--- NOTE | 2021-11-24 15:51 | DI.US.S_ITS ---
PROCEDURE: US OB FOLLOW UP INDICATIONS: FOLLOW UP RENAL PELVIECTASIS OUTSIDE/PRIOR DATING DATA: First dating scan (date and location): 09/09/2021. Estimated date of delivery (YAKOV) from first dating scan: 02/02/2022. The calculations are made using the ultrasound YAKOV of . TECHNIQUE: Real-time scanning was performed of the fetus, with image documentation. COMPARISON: None. FINDINGS: A single living intrauterine gestation is present. Presentation: Vertex. Placenta: Placental position is posterior, without previa. Amniotic fluid index: 12.2 cm, normal range is 5-24 cm. heart rate: 165 beats per minute. Maternal cervical canal: Not well seen. Clinically estimated gestational age: N/a Estimated gestational age from initial scan: 30 weeks 0 days Mild bilateral renal pyelectasis with the right renal pelvis measuring up to 7.4 mm and the left renal pelvis 6.8 mm. . IMPRESSION: 1. Single living IUP redemonstrated and there is mild bilateral renal pyelectasis. Continued sonographic surveillance is recommended. Dictated by: Rigoberto Cox [facility] Interpreted: Mauro Abdul MD on 11/28/2021 at 15:22 Transcribed by: JOHN on 11/28/2021 at 15:25 Approved by: Mauro Abdul M.D. on 11/28/2021 at 16:32
[2021-11-24 17:53] LABS: GTT (PREG) 1 Hour PP 50gm Dose 106 mg/dL (76-139)
== END ==
PROVIDERS: PCP Nurse Practitioner Family; Referring Provider Family Medicine; Visit Provider Family Medicine
DX: Z3A.30 30 weeks gestation of pregnancy; Z36.2 Encounter for other antenatal screening follow-up
CPT/HCPCS: 36415; 76816; 82950

== ENCOUNTER → 2021-11-28 13:14 | Outpatient (CLI) | payer OTHER, SELFPAY | PROVIDERS: PCP Nurse Practitioner Family; Referring Provider Family Medicine; Visit Provider Family Medicine | DX: Z36.2 Encounter for other antenatal screening follow-up (principal); Z53.8 Procedure and treatment not carried out for other reasons ==

== ENCOUNTER 2022-01-13 20:38 | Outpatient (CLI) | payer OTHER, SELFPAY ==
--- NOTE | 2022-01-13 22:35 | P.TNLD_ITS ---
Visit Information Visit Information Date of evaluation: 01/13/22 Primary OB Provider: Samanta Louis On-call OB Provider: Georgiana Rodriguez Reason for Evaluation: Yes rupture of membranes Vital Signs Vital Signs: BP 107/65, P 94, T 97.2 [facility] Medical History Anxiety (~2008) Chicken pox (~1993) Chronic lower back pain Chronic migraine Depression (~2008) Headache (~2007) Heavy menstrual period (~2006) History of recurrent ear infection Hypothyroid (~2008) Painful menstrual periods (~2006) Seizure (~2005) Seizure (~2018) Stress fracture of right femur (~2015) Stress fracture, left foot, initial encounter for fracture (~2015) Surgical History (Updated 06/26/21 @ 22:23 by Padmaja Carter) Anesthesia 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) History of colonoscopy (~03/2016) History of esophagogastroduodenoscopy (EGD) (~03/2016) History of placement of ear tubes (~1994) History of tonsillectomy and adenoidectomy (~02/2002) S/P lumpectomy, right breast (~2016) [place] teeth extracted (~10/2012) Family History (Updated 06/26/21 @ 22:26 by Padmaja Carter) Father Corneal transplant failure Alcohol abuse by father Depression Heavy smoker Mental health problem Mother Hypertension DVT (deep venous thrombosis) Endometriosis Depression Heavy smoker Hypothyroid Mental health problem Grandfather Alcohol addiction Melanoma Neuropathy Heavy smoker Cancer Hypertension Grandmother Diabetes mellitus Hypertension Type 2 diabetes mellitus Heavy smoker Hypothyroid Grandfather Family history of alcohol abuse Alcohol addiction Dementia Heavy smoker Grandmother Blood clotting disorder Hypercoagulable state Hypertension Heavy smoker Brother Asthma Brother Depression Anxiety Family/Other Hypothyroid Family/Other Cancer Throat cancer Social History marital status: household members: spouse lives independently: Yes housing: house pets and animals: Yes (X 1 dog) education level: master's degree occupational status: employed current occupational exposures/hazards: Yes special bia needs: No Smoking Status: Never smoker second hand exposure: No ( smokes - working on quitting. Some growing up but not currently) alcohol intake: former substance use type: does not use Review of Systems Review of Systems Narrative: Pt. c/o gush of fluid and wetness with cramping and pelvic pressure Evaluation Evaluation Baseline heart rate: 130 Variability: Moderate (11-25) monitor accelerations: Present Monitor Decelerations: Absent Contraction Frequency (minutes): 15 Uterine Contraction Intensity: Mild Category of Tracing: Reactive Status: Category l Non-invasive Membranes Rupture Test: negative Diagnosis, Plan/Disposition Final Diagnosis (1) 36 weeks gestation of : Status: Acute (2) False labor: Status: Acute Plan/Disposition Plan: Amniosure negative with infrequent contractions. Reassuring tracing. OB Disposition: home
== END 2022-01-13 21:37 | disposition home or self-care (01) ==
LOC: OB 01-17 12:39
PROVIDERS: PCP Nurse Practitioner Family; Referring Provider Specialist; Visit Provider Specialist
DX: Z03.71 Encounter for suspected problem with amniotic cavity and membrane ruled out (principal); O47.03 False labor before 37 completed weeks of gestation, third trimester; Z3A.36 36 weeks gestation of pregnancy
CPT/HCPCS: 59025; 84112; G0378; G0379

== ENCOUNTER → 2022-01-17 12:02 | Outpatient (CLI) | payer OTHER, SELFPAY ==
[2022-01-18 14:28] LABS: Strep Grp B PCR NEG for Grp B Strep
== END ==
PROVIDERS: PCP Nurse Practitioner Family; Visit Provider Family Medicine
DX: Z3A.36 36 weeks gestation of pregnancy (principal); Z34.03 Encounter for supervision of normal first pregnancy, third trimester
CPT/HCPCS: 87653

== ENCOUNTER → 2022-01-20 10:03 | Outpatient (CLI) | payer OTHER, SELFPAY ==
--- NOTE | 2022-01-20 10:05 | DI.US.S_ITS ---
PROCEDURE: US OB LIMITED INDICATIONS: 38 WEEK GROWTH SCAN OUTSIDE/PRIOR DATING DATA: Last menstrual period (LMP): Unknown First dating scan (date and location): 09/09/2021 Estimated date of delivery (YAKOV) from first dating scan: 02/02/2022 The calculations are made using the ultrasound YAKOV of 02/02/2022 TECHNIQUE: Real-time scanning was performed of the fetus, with image documentation and biometric measurements. Endovaginal scanning: Not performed COMPARISON: None. FINDINGS: General: A single living intrauterine gestation is present. Presentation: Cephalic Placenta: Placental position is posterior, without previa. Amniotic fluid index: 8.6 cm, normal range is 5-24 cm. Single deepest vertical pocket is 3.6 cm. heart rate: 133 beats per minute. Maternal cervical canal: Not well seen. biometrics: Biparietal diameter: 9.6 cm, 39 weeks 1 day Head circumference: 33.5 cm, 38 weeks 2 days Abdominal circumference: 34.3 cm, 38 weeks 1 day Femur length: 7.5 cm, 38 weeks 4 days Clinically estimated gestational age: 38 weeks 1 day Composite gestational age from present scan: 38 weeks 4 days Estimated weight and percentile: 3486 grams, 78th percentile Other: Not applicable. IMPRESSION: 1. Single live intrauterine with appropriate interval growth. 2. Estimated weight is 3486 grams, 78th percentile for gestational age. 3. Amniotic fluid index is 8.6 cm We strive to produce accurate, complete, and clear reports of imaging services. To assist us in improving patient care, this report was composed using standard report templates and voice recognition software. Therefore, it may contain abnormal punctuation, insertions and/or omissions. Occasional wrong-word or sound-alike substitutions may occur. Though we review the report and make efforts to correct it, we do recommend that the report be read carefully in proper context to recognize any text inaccuracies. Dictated by: Jorge Najera M.D. on 01/20/2022 at 14:25 Approved by: Jorge Najera M.D. on 01/20/2022 at 14:31
== END ==
PROVIDERS: PCP Nurse Practitioner Family; Referring Provider Family Medicine; Visit Provider Family Medicine
DX: Z34.93 Encounter for supervision of normal pregnancy, unspecified, third trimester (principal); Z3A.38 38 weeks gestation of pregnancy
CPT/HCPCS: 76815

== ENCOUNTER 2022-01-23 16:26 | Outpatient (CLI) | payer OTHER, SELFPAY ==
--- NOTE | 2022-01-23 17:00 | P.TNLD_ITS ---
Visit Information Visit Information Date of evaluation: 01/23/22 Primary OB Provider: Samanta Louis Reason for Evaluation: Yes non-stress test non-stress test reason: decreased movement Comments/Additional reasons for admission: 26yo at 37w4d here for NST for decreased movement. 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) History of colonoscopy (~03/2016) History of esophagogastroduodenoscopy (EGD) (~03/2016) History of placement of ear tubes (~1994) History of tonsillectomy and adenoidectomy (~02/2002) S/P lumpectomy, right breast (~2016) [place] teeth extracted (~10/2012) Family History (Updated 06/26/21 @ 22:26 by Padmaja Carter) Father Corneal transplant failure Alcohol abuse by father Depression Heavy smoker Mental health problem Mother Hypertension DVT (deep venous thrombosis) Endometriosis Depression Heavy smoker Hypothyroid Mental health problem Grandfather Alcohol addiction Melanoma Neuropathy Heavy smoker Cancer Hypertension Grandmother Diabetes mellitus Hypertension Type 2 diabetes mellitus Heavy smoker Hypothyroid Grandfather Family history of alcohol abuse Alcohol addiction Dementia Heavy smoker Grandmother Blood clotting disorder Hypercoagulable state Hypertension Heavy smoker Brother Asthma Brother Depression Anxiety Family/Other Hypothyroid Family/Other Cancer Throat cancer Social History marital status: household members: spouse lives independently: Yes housing: house pets and animals: Yes (X 1 dog) education level: master's degree occupational status: employed current occupational exposures/hazards: Yes special bia needs: No Smoking Status: Never smoker second hand exposure: No ( smokes - working on quitting. Some growing up but not currently) alcohol intake: former substance use type: does not use Evaluation Evaluation Baseline heart rate: 135 Variability: Moderate (11-25) monitor accelerations: Present Monitor Decelerations: Absent Category of Tracing: Reactive Diagnosis, Plan/Disposition Final Diagnosis (1) 37 weeks gestation of : Status: Acute (2) Decreased movement: Status: Acute Plan/Disposition Plan: 26yo at 37w4d here for NST for decreased movement. Reactive NST. Safe for d/c home. OB Disposition: home
== END 2022-01-23 17:03 | disposition home or self-care (01) ==
LOC: LABOR 17:03 → OB 01-24 10:41
PROVIDERS: PCP Nurse Practitioner Family; Referring Provider Family Medicine; Visit Provider Family Medicine
DX: O36.8130 Decreased fetal movements, third trimester, not applicable or unspecified (principal); Z3A.37 37 weeks gestation of pregnancy
CPT/HCPCS: 59025; G0378; G0379

== ENCOUNTER 2022-02-02 12:53 | Outpatient (CLI) | payer OTHER, SELFPAY ==
--- NOTE | 2022-02-02 13:41 | P.TNLD_ITS ---
Visit Information Visit Information Date of evaluation: 02/02/22 Primary OB Provider: Samanta Louis On-call OB Provider: Gisella Bill Reason for Evaluation: Yes non-stress test non-stress test reason: other (r/o rupture) Comments/Additional reasons for admission: Patient is a 26yo @39+0 presenting with scant wetness concerning for LOF. Intermittent contractions with no change in pattern, no VB, good movement, no other symptoms. Scheduled for IOL next week. 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) History of colonoscopy (~03/2016) History of esophagogastroduodenoscopy (EGD) (~03/2016) History of placement of ear tubes (~1994) History of tonsillectomy and adenoidectomy (~02/2002) S/P lumpectomy, right breast (~2016) [place] teeth extracted (~10/2012) Family History Father Corneal transplant failure Alcohol abuse by father Depression Heavy smoker Mental health problem Mother Hypertension DVT (deep venous thrombosis) Endometriosis Depression Heavy smoker Hypothyroid Mental health problem Grandfather Alcohol addiction Melanoma Neuropathy Heavy smoker Cancer Hypertension Grandmother Diabetes mellitus Hypertension Type 2 diabetes mellitus Heavy smoker Hypothyroid Grandfather Family history of alcohol abuse Alcohol addiction Dementia Heavy smoker Grandmother Blood clotting disorder Hypercoagulable state Hypertension Heavy smoker Brother Asthma Brother Depression Anxiety Family/Other Hypothyroid Family/Other Cancer Throat cancer Social History marital status: household members: spouse lives independently: Yes housing: house pets and animals: Yes (X 1 dog) education level: master's degree occupational status: employed current occupational exposures/hazards: Yes special bia needs: No Smoking Status: Never smoker second hand exposure: No ( smokes - working on quitting. Some growing up but not currently) alcohol intake: former substance use type: does not use Evaluation Evaluation Baseline heart rate: 135 Variability: Moderate (11-25) monitor accelerations: Present Monitor Decelerations: Absent Category of Tracing: Reactive Status: Category l Non-invasive Membranes Rupture Test: negative Diagnosis, Plan/Disposition Plan/Disposition Plan: Amnisure negative, cat 1 reactive EFM. Labor precautions reviewed with patient by staff. OB Disposition: home
== END 2022-02-02 13:50 | disposition home or self-care (01) ==
LOC: OB 02-05 10:47
PROVIDERS: PCP Nurse Practitioner Family; Referring Provider Obstetrics & Gynecology; Visit Provider Obstetrics & Gynecology
DX: Z03.71 Encounter for suspected problem with amniotic cavity and membrane ruled out (principal); O47.1 False labor at or after 37 completed weeks of gestation; Z3A.39 39 weeks gestation of pregnancy
CPT/HCPCS: 59025; 84112; G0378; G0379

== ENCOUNTER 2022-02-05 18:07 | Inpatient (IN) | payer OTHER, SELFPAY ==
[2022-02-05 20:09] LABS: Add Manual Diff / Slide Review NO; Basophils Absolute Auto 0 /uL (0-100); Basophils Percent Auto 0.3 % (0-2); Eosinophils Absolute Auto 100 /uL (0-450); Eosinophils Percent Auto 0.7 % (2-4); Hematocrit 34.9 % (36-46); Lymphocytes Absolute Auto 1700 /uL (1100-4500); Lymphocytes Percent Auto 16.4 % (25-40); Mean Corpuscular HGB Conc 34.5 % (30-36); Mean Corpuscular Hemoglobin 33.3 PG (26-34); Mean Corpuscular Volume 96.5 fL (80-100); Monocytes Absolute Auto 700 /uL (0-900); Monocytes Percent Auto 6.8 % (3-14); Neutrophils Absolute Auto 7700 /uL (1500-7000); Neutrophils Percent Auto 75.8 % (50-75); Platelet Count 205 X10^3/uL (150-400); Red Blood Cell Count 3.61 X10^6/uL (4.0-5.2); Red Cell Distribution Width 13.6 % (11.6-14.8); White Blood Cell Count 10.1 X10^3/uL (4.5-11.0)
[2022-02-05 20:25] VITALS: BP 121/68
[2022-02-05 20:25] LABS: COVID19 -Nasal RAPID Negative (Negative)
[2022-02-05] MEDS: DINOPROSTONE VAG (CERVIDIL) 10 MG VAG (20:42)
[2022-02-05] MEDS: LACTATED RINGERS 1,000 ML 100 ML IV (22:07)
[2022-02-06] MEDS: LACTATED RINGERS 1,000 ML 100 ML IV ×2 (08:09→17:20)
[2022-02-06] MEDS: ONDANSETRON 4 MG/2 ML INJ IV (08:12)
[2022-02-06] MEDS: fentaNYL 250 MCG/5 ML INJ 50 MCG IV (08:33)
--- NOTE | 2022-02-06 09:17 | P.HPOB_ITS ---
OB HPI Date/Time Date of admission: 02/06/22 Date Patient Seen: 02/06/22 Time Patient Seen: 07:50 History of Present Condition Chief complaint: induction YAKOV Calculator Estimated Delivery Date Method Current WG Current Estimate 02/09/22 LMP (Certain) 39w 4d Other Estimates 02/05/22 Ultrasound #1 40w 1d 02/09/22 Manual 39w 4d Final YAKOV - ROSEMARY Estimated Gestational Age (weeks): 39w4d : 1 Para: 0 Narrative: 26yo at 39w4d here for elective IOL. Pt reports some spotting overnight, no desmond bleeding or LOF. She is feeling her baby move regularly. She started having painful contractions around 3am, now intensifying. Her was complicated by borderline renal pyelectasis, which was absent on MFM ultrasound. Also with LGA fetus, around 91st percentile. care: good care, initiated at week # (8) and pounds weight gain (48) Dating criteria OB: LMP confirmed by 1st trimester US Ultrasounds: normal 1st trimester US and abnormal US findings Abnormal ultrasound findings: borderline renal pyelectasis on anatomy scan, not present on MFM scan at 31 wks 31wk u/s 91st percentile, 91.7 percentile at 37wk1d u/s Obstetrical complications: none Medical complications OB: none Indications Indication for induction OB: maternal discomfort Preadmission Labs Last OB Lab Results: Blood Type A Positive 02/05/22 19:30 02/05/22 Antibody Screen Negative 02/05/22 19:30 02/05/22 Hematocrit 34.9 % (36-46) L 02/05/22 19:30 02/05/22 Hemoglobin 12.0 g/dL (12.0-16.0) 02/05/22 19:30 02/05/22 Hepatitis B Surface Antigen Negative s/c (NEGATIVE) 07/04/21 14:54 07/04/21 Hepatitis C Antibody Negative s/c (NEGATIVE) 07/04/21 14:54 07/04/21 Rubella Antibody 11.9 IU/mL (>15) L 07/04/21 14:54 07/04/21 Varicella-Zoster IgG Antibody 1566 index (Immune >165) 07/04/21 14:54 07/04/21 Glucose 1 Hour 106 mg/dL (76-139) 11/24/21 16:28 11/24/21 Group B Streptococcus (PCR) Neg for grp b strep 01/17/22 12:02 01/17/22 -: Urine: positive (lactobacillus) External Labs -: Urine: positive (lactobacillus) Evaluation Evaluation Baseline heart rate: 130 Variability: Moderate (11-25) monitor accelerations: Present Monitor Decelerations: Absent Contraction Frequency (minutes): 4 Status: Category l Dilation (cm): 3 Effacement (%): 90 Dilation: 3-4 cm Effacement: >/=80% station: 0 Position of cervix: mid Consistency: soft Doty score: 10 PFS Medical History Anxiety (~2008) Chicken pox (~1993) Chronic lower back pain Chronic migraine Depression (~2008) Headache (~2007) Heavy menstrual period (~2006) History of recurrent ear infection Hypothyroid (~2008) Painful menstrual periods (~2006) Seizure (~2005) Seizure (~2018) Stress fracture of right femur (~2015) Stress fracture, left foot, initial encounter for fracture (~2015) Surgical History Anesthesia 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) History of colonoscopy (~03/2016) History of esophagogastroduodenoscopy (EGD) (~03/2016) History of placement of ear tubes (~1994) History of tonsillectomy and adenoidectomy (~02/2002) S/P lumpectomy, right breast (~2016) [place] teeth extracted (~10/2012) Family History Father Corneal transplant failure Alcohol abuse by father Depression Heavy smoker Mental health problem Mother Hypertension DVT (deep venous thrombosis) Endometriosis Depression Heavy smoker Hypothyroid Mental health problem Grandfather Alcohol addiction Melanoma Neuropathy Heavy smoker Cancer Hypertension Grandmother Diabetes mellitus Hypertension Type 2 diabetes mellitus Heavy smoker Hypothyroid Grandfather Family history of alcohol abuse Alcohol addiction Dementia Heavy smoker Grandmother Blood clotting disorder Hypercoagulable state Hypertension Heavy smoker Brother Asthma Brother Depression Anxiety Family/Other Hypothyroid Family/Other Cancer Throat cancer Social History marital status: household members: spouse lives independently: Yes housing: house pets and animals: Yes (X 1 dog) education level: master's degree occupational status: employed current occupational exposures/hazards: Yes special bia needs: No Smoking Status: Never smoker second hand exposure: No ( smokes - working on quitting. Some growing up but not currently) alcohol intake: former substance use type: does not use Meds Home Medications and Allergies Home Medications Medication Instructions Recorded Confirmed Type epinephrine 0.3 mg/0.3 mL 0.3 mg IM Q5-15M PRN 06/22/21 02/05/22 History injection, auto-injector (EpiPen 2-Reinaldo) prenat.vits,angel,[id number] 1 tab PO DAILY #90 tab 07/04/21 02/05/22 Rx hydroxyzine HCl 25 mg tablet 25 mg PO BEDTIME #30 tab 09/09/21 02/05/22 Rx breast pump #1 ea 12/12/21 02/05/22 Rx omeprazole 20 mg capsule,delayed 20 mg PO DAILY #30 cap 12/19/21 02/05/22 Rx release Allergies Allergy/AdvReac Type Severity Reaction Status Date / Time amoxicillin Allergy Intermediate Rash and Verified 01/17/22 12:04 Hives to neck : no trouble breathing Penicillins Allergy Intermediate Rash and Verified 01/17/22 12:04 Hives to neck : no trouble breathing acetaminophen [From Percocet] AdvReac Severe Severe Verified 01/17/22 12:04 vomiting diphenhydramine AdvReac Severe Racing Verified 01/17/22 12:04 [From Benadryl] heart oxycodone [From Percocet] AdvReac Severe Severe Verified 01/17/22 12:04 vomiting jessica Allergy Severe Anaphylaxis Uncoded 01/17/22 12:04 has an Epi-pen OB Exam Narrative Exam Narrative: Gen: NAD, laying in bed, breathing through contractions CV: RRR, no murmurs Resp: clear to auscultation bilaterally Abd: soft, nontender, gravid Ext: no edema Objective Labs Result Diagrams: 02/05/22 19:30 Labs: Laboratory Results - last 24 hr 02/05/22 02/05/22 02/05/22 19:20 19:30 19:30 WBC 10.1 RBC 3.61 L Hgb 12.0 Hct 34.9 L MCV 96.5 MCH 33.3 MCHC 34.5 RDW 13.6 Plt Count 205 Neut % (Auto) 75.8 H Lymph % (Auto) 16.4 L [place] % (Auto) 6.8 Eos % (Auto) 0.7 L Baso % (Auto) 0.3 Neut # (Auto) 7700 H Lymph # (Auto) 1700 [place] # (Auto) 700 Eos # (Auto) 100 Baso # (Auto) 0 SARS-CoV-2 (PCR) Negative Blood Type A Positive Antibody Screen Negative Assessment and Plan Assessment and Plan Assessment and Plan narrative: 26yo at 39w4d here for elective IOL. GBS negative, Rh positive. uncomplicated other than LGA. Pt received cervidil last night, now very uncomfortable with good cervical change. Cervidil removed. - Expectant management, anticipate - FHT reassuring - Epidural for pain control now - GBS negative, no prophylaxis indicated - Will monitor contractions, if slowing plan to start pitocin and titrate as needed - Plan for AROM after pt comfortable with epidural
[2022-02-06] MEDS: FENT 2MCG/ML BUPIV 0.125% EPI 200 MCG/100 ML PLAST..BAG 9 MCG EPIDURAL ×2 (09:25→13:39)
[2022-02-06] MEDS: CALCIUM CARBONATE 500 MG TAB 1000 MG PO ×3 (09:59→16:55)
--- NOTE | 2022-02-06 13:09 | PM.OBPNLAB ---
Date/Time Date Patient Seen: 02/06/22 Time Patient Seen: 13:09 Pain Control Pain control: epidural Pelvic Exam Dilation (cm): 4 Effacement (%): 90 station: 0 Amniotic membrane status: Ruptured Comments: After informed consent, AROM performed with production of light blood-tinged fluid. Contractions Contraction frequency (min): 3 Status status: Category l Heart Rate Baseline: 135 Monitor Accelerations: Present Monitor Decelerations: Absent Monitor Variability: Moderate Assessment and Plan Comments: 26yo at 39w4d here for elective IOL.? GBS negative, Rh positive.? uncomplicated other than LGA.? Pt received cervidil last night, with regular painful contractions. Minimal cervical change since removal. AROM now performed with light blood-tinged fluid. - Expectant management, anticipate - FHT reassuring - Epidural in place for pain control. Pt with significant right hip pain. Working with anesthesia to help get more comfortable. - GBS negative, no prophylaxis indicated - May need pitocin, will monitor contraction pattern.
[2022-02-06] MEDS: OXYTOCIN PREMIX 30 UNIT/500 ML PLAST..BAG IV (13:39)
--- NOTE | 2022-02-06 19:59 | PM.OBPRVD ---
Labor & Delivery Delivery date: 02/06/22 Cervical ripening method: per Cervidil protocol Delivery augmentation: rupture of membranes and pitocin Delivery monitor: external FHT Route of delivery: Episiotomy description: None L&D Laceration Description: Perineal - 2nd Degree Delivery repair: vicryl Estimated blood loss (mL): 400 Anesthesia Type: Epidural Complications: None Narrative: PROCEDURE: at 39w4d presented for elective IOL and was admitted to Labor and Delivery. She received cervidil for IOL, and transitioned into labor with this. The patient progressed through the 1st stage over 10.5 hours. Pain was controlled with an epidural. AROM was performed with blood-tinged fluid present. Pitocin was initiated due to limited cervical change. The patient progressed through the 2nd stage over 51 minutes and delivered a viable male infant with APGARs 9/9 at 18:51 via without complications. The cord was cut and clamped after it stopped pulsating. The perineum and vagina were inspected with 2nd degree perineal laceration repaired with 2-O Vicryl. PREPROCEDURE DIAGNOSIS: Intrauterine at 39w4d LGA GBS negative RH positive POSTPROCEDURE DIAGNOSIS: Intrauterine at 39w4d, delivered Same as preprocedure Baby 1: Infant gender: Male Presentation: vertex Position: Right Occiput Anterior Placenta delivery description: Spontaneous Cord Vessel Description: 3 Vessels score (1 min): 9 score (5 min): 9 weight: 8 lb 5.265 oz Plan for aftercare: Routine care
[2022-02-06] MEDS: IBUPROFEN 600 MG TABLET PO (21:25)
[2022-02-06] MEDS: ACETAMINOPHEN 325 MG TABLET 650 MG PO (21:25)
[2022-02-06] MEDS: OXYCODONE IR 5 MG TABLET PO (22:02)
[2022-02-07] MEDS: ACETAMINOPHEN 325 MG TABLET 650 MG PO ×4 (03:20→21:22)
[2022-02-07] MEDS: IBUPROFEN 600 MG TABLET PO ×4 (03:20→21:21)
[2022-02-07] MEDS: LANOLIN OINT 7 GM 1 APPLIC TOP (08:56)
[2022-02-07] MEDS: PRENATAL VIT,CALC/IRON/FOLIC 1 TABLET 1 TAB PO (08:57)
[2022-02-07] MEDS: DOCUSATE 100 MG CAPSULE PO (08:57)
[2022-02-07] MEDS: OXYCODONE IR 5 MG TABLET PO ×2 (09:52→14:26)
--- NOTE | 2022-02-07 17:21 | PM.OBPN.1 ---
Subjective - OB Subjective Date Patient Seen: 02/07/22 Time Patient Seen: 07:50 Interval history: The pt reports that she is feeling well. She is with good latch. Her lochia is decreasing appropriately. She is passing flatus and has ambulated. She is urinating without difficulty. She has no specific concerns. Exam Narrative Exam Narrative: Gen: NAD, sitting comfortably in bed, appears well CV: RRR, no murmurs Resp: clear to auscultation bilaterally Abd: soft, appropriately tender, fundus firm and below the umbilicus, nondistended Ext: no edema Objective Labs Result Diagrams: 02/05/22 19:30 Assessment & Plan Plan Comments: Pt is a 26yo PPD#1 s/p without complications. Pt doing well. - Normal care - support Time Spent With Patient Time: Total time spent is greater than 50% in coordination of care (as documented) at patient's floor/unit and/or counseling patient: Time with patient: less than 15 minutes
[2022-02-07] MEDS: PHENYLEPH/MINERAL OIL/PETROLAT 57 GM OINT 1 APPLIC PR (22:18)
[2022-02-07] MEDS: CALCIUM CARBONATE 500 MG TAB 1000 MG PO (22:18)
[2022-02-08] MEDS: ACETAMINOPHEN 325 MG TABLET 650 MG PO ×2 (03:28→09:33)
[2022-02-08] MEDS: IBUPROFEN 600 MG TABLET PO ×2 (03:28→09:34)
[2022-02-08] MEDS: DOCUSATE 100 MG CAPSULE PO (09:35)
[2022-02-08] MEDS: PRENATAL VIT,CALC/IRON/FOLIC 1 TABLET 1 TAB PO (09:35)
--- NOTE | 2022-02-08 10:30 | P.DS_ITS ---
Discharge Providers Provider Date of admission: 02/05/22 18:07 Discharge Date: 02/08/22 Primary care physician: JORGE Al Consults: 02/07/22 20:57 Consult to Irrigation Installation Specialist Routine Comment: Discharge provider: Samanta Louis MD Summary Hospital Course Date Patient Seen: 02/08/22 Time Patient Seen: 08:45 Diagnoses: 39w4d gestation LGA GBS negative RH positive Hospital Course: The pt presented for elective IOL. She received cervidil and transitioned into labor. She received an epidural for pain control. AROM was performed and pitocin later initiated. She progressed to complete and had an of a viable baby boy on 02/06/22 without complications. A 2nd degree perineal laceration was then repaired. There were no complications. At the time of discharge she was voiding, ambulating, and passing flatus without difficulty. Her lochia was decreasing appropriately. She was with good latch. Her pain was well controlled. She will f/u in clinic in 6 weeks for check. Peripartum Data Infant Delivery Method: Natural Vaginal Laceration Description: Perineal - 2nd Degree Episiotomy description: None Procedures: Spontaneous vaginal delivery complications: none [place] 1: Gender: Male Disposition of : home Discharge Diagnosis (1) Spontaneous vaginal delivery: Status: Acute Status at Discharge Cognitive/behavioral status at discharge: oriented Functional status at discharge: independent ambulation Overall status at discharge: patient is progressing back to baseline Time Spent with Patient Time attestation: Total time spent providing and/or coordinating discharge services: Objective Labs Result Diagrams: 02/05/22 19:30 Exam Narrative Exam Narrative: Gen: NAD, sitting comfortably in bed, appears well CV: RRR, no murmurs Resp: clear to auscultation bilaterally Abd: soft, appropriately tender, fundus firm and below the umbilicus, nondistended Ext: no edema Discharge Plan Discharge Plan Patient Disposition: Home Discharge orders & Medications Prescriptions: New acetaminophen 325 mg Tablet 650 mg PO Q6HR PRN (Reason: Pain, Mild (1-3)) Qty: 30 0RF hydrocortisone acetate [Anucort-HC] 25 mg Suppository 25 mg MO BID Qty: 30 0RF docusate sodium 100 mg Capsule 100 mg PO DAILY Qty: 30 0RF ibuprofen 600 mg Tablet 600 mg PO Q6HR PRN (Reason: Pain, Mild (1-3)) Qty: 30 0RF Continued prenat.vits,angel,idj-[id number] Tablet 1 tab PO DAILY Qty: 90 3RF omeprazole 20 mg capsule,delayed release(DR/EC) 20 mg PO DAILY Qty: 30 2RF hydroxyzine HCl 25 mg tablet 25 mg PO BEDTIME Qty: 30 1RF (DME) breast pump Device See Rx Instructions .ROUTE .MEDSUPPLY Qty: 1 0RF Rx Instructions: As directed epinephrine [EpiPen 2-Reinaldo] 0.3 mg/0.3 mL auto-injector 0.3 mg IM Q5-15M PRN (Reason: Allergic Reaction) 0RF Rx Instructions: do not exceed 3 doses per episode Follow up/Referrals: Yaneth Chacko ARNP [Primary Care Provider] - Samanta Louis MD [Physician] - 6 Weeks (Call to schedule or schedule at your baby's appointment.) Diet/Activity/Treatments Diet: Diet as Tolerated and Regular Skin/Wound/Dressing Care Report to your healthcare provider any signs of infection, such as:: chills, fever, increased pain and unusual drainage Visit Report/Discharge Packet Instructions: DI for Labor and Delivery, Vaginal Stand Alone Forms: Discharge: Care Visit Report Forms: Patient Portal/API, Stroke Signs & Symptoms Discharge Data Primary Care Provider: Yaneth Chacko Discharges patient from system. Discharge Date/Time: 02/08/22 12:00
[2022-02-08 10:59] VITALS: BP 116/75; PULSE 95; RESP 20; TEMP 36.7
== END 2022-02-08 12:00 | disposition home or self-care (01) | DRG 807 ==
PROVIDERS: Admitting Provider Family Medicine; PCP Nurse Practitioner Family; Referring Provider Family Medicine; Visit Provider Family Medicine
DX: O36.63X0 Maternal care for excessive fetal growth, third trimester, not applicable or unspecified (principal); Z37.0 Single live birth; Z3A.39 39 weeks gestation of pregnancy; O70.1 Second degree perineal laceration during delivery
CPT/HCPCS: 01967; 36415; 59050; 59200; 59400; 85025; 86850; 86900; 86901; 87635; C9803; G0379; J2405; J2590; J2765; J3010

== ENCOUNTER → 2022-07-13 08:38 | Outpatient (CLI) | payer OTHER, SELFPAY ==
--- NOTE | 2022-07-13 | DI.MG.S_ITS ---
UNILATERAL LEFT DIGITAL DIAGNOSTIC MAMMOGRAM 3D/2D: 07/13/2022 CLINICAL: Mass left breast. Comparison is made to exam dated: 07/13/2022 [facility]. The tissue of left breast is extremely dense, which lowers the sensitivity of mammography. No significant masses, calcifications, or other findings are seen in the breast. IMPRESSION: NEGATIVE There is no abnormality seen in the left breast to correspond with the area of clinical concern indicated by a triangular marker at 12 o'clock 1-2cm from the nipple, however, clinical correlation and clinical followup are recommended. Reimaging with US and/or mammography could be obtained if symptoms worsen or enlarges. There is no mammographic evidence of malignancy. Based on the Tyrer Cuzick model (a risk assessment model) the patient's lifetime risk is 14.4% and her 10 year risk is 0.3%. According to the ACR, ACS, and NCCN guidelines, an annual breast MRI exam along with mammogram is recommended if the patient's lifetime risk is 20% or greater. This exam was interpreted at Station ID: [id number]. NOTE: For mammograms, a report in lay terms will be sent to the patient. Approximately 15% of breast malignancies will not be visualized mammographically. In the management of a palpable breast mass, a negative mammogram must not discourage biopsy of a clinically suspicious lesion. Electronically Signed By: Jose Ramon Contreras M.D. lc/:07/13/2022 10:20:39 letter sent: Clinical Evaluation ACR BI-RADS Category 1: Negative [id number]
--- NOTE | 2022-07-13 08:39 | DI.US.S_ITS ---
ULTRASOUND OF LEFT BREAST: 07/13/2022 CLINICAL: Palpable left breast lump. No prior exams were available for comparison. Color flow and real-time ultrasound of the left breast were performed. Ledesma scale images of the real-time examination were reviewed. No significant abnormalities were seen sonographically in the left breast. IMPRESSION: INCOMPLETE: NEEDS ADDITIONAL IMAGING EVALUATION There is no abnormality seen in the left breast to correspond with the area of clinical concern at 12 o'clock. Mammography report to follow. This exam was interpreted at Station ID: [id number]. Electronically Signed By: Jose Ramon Contreras M.D. lc/:07/13/2022 10:18:52 Ultrasound BI-RADS: 0 Indeterminate
== END ==
PROVIDERS: PCP Family Medicine; Referring Provider Family Medicine; Visit Provider Family Medicine
DX: N63.20 Unspecified lump in the left breast, unspecified quadrant (principal); R92.2 Inconclusive mammogram
CPT/HCPCS: 76642; 77065; G0279

== ENCOUNTER → 2022-07-30 10:47 | Outpatient (CLI) | payer OTHER, SELFPAY | PROVIDERS: PCP Family Medicine; Visit Provider Nurse Practitioner Family | DX: J02.9 Acute pharyngitis, unspecified (principal) | CPT/HCPCS: 87070 ==

== ENCOUNTER → 2023-07-18 13:42 | Outpatient (CLI) | payer OTHER, SELFPAY ==
[2023-07-18 14:13] LABS: Add Manual Diff / Slide Review NO; Basophils Absolute Auto 0 /uL (0-100); Basophils Percent Auto 0.4 % (0-2); Eosinophils Absolute Auto 0 /uL (0-450); Eosinophils Percent Auto 0.7 % (2-4); Hematocrit 36.2 % (36-46); Hemoglobin 12.9 g/dL (12.0-16.0); Lymphocytes Absolute Auto 1500 /uL (1100-4500); Mean Corpuscular HGB Conc 35.6 % (30-36); Mean Corpuscular Hemoglobin 32.4 PG (26-34); Mean Corpuscular Volume 90.9 fL (80-100); Monocytes Absolute Auto 400 /uL (0-900); Monocytes Percent Auto 6.1 % (3-14); Neutrophils Absolute Auto 4600 /uL (1500-7000); Neutrophils Percent Auto 69.8 % (50-75); Platelet Count 263 X10^3/uL (150-400); Red Blood Cell Count 3.98 X10^6/uL (4.0-5.2); Red Cell Distribution Width 12.4 % (11.6-14.8); White Blood Cell Count 6.6 X10^3/uL (4.5-11.0)
[2023-07-18 14:24] LABS: Appearance Urine UA CLEAR; Bilirubin Urine UA NEGATIVE (NEGATIVE); Color Urine UA YELLOW; Glucose Urine UA NEGATIVE (Negative); Ketones Urine UA TRACE (NEGATIVE); Leukocyte Esterase Urine UA NEGATIVE (NEGATIVE); Nitrite Urine UA NEGATIVE (Negative); Occult Blood Urine UA TRACE-INTACT (Negative); Protein Urine UA NEGATIVE (Negative); Specific Gravity Urine UA 1.015 (1.000-1.035); Urobilinogen Urine UA 0.2 E.U./dL (0.2)
[2023-07-18 15:06] LABS: Free T4, Direct Thyroxine 1.21 ng/dL (0.78-2.19)
[2023-07-19 06:13] LABS: RPR Screen Non Reactive (Non Reactive)
[2023-07-19 08:39] LABS: Varicella IgG Antibody 950 index (Immune >165)
[2023-07-19 16:48] LABS: HIV 1 & 2 Ab/Ag 4th Gen Combo NEGATIVE (NEGATIVE); Hep C Virus Ab w/Reflex Quant NEGATIVE s/c (NEGATIVE); Hepatitis B Surface Antigen NEGATIVE s/c (NEGATIVE); Rubella Antibody IgG 9.2 IU/mL (>15)
== END ==
PROVIDERS: PCP Family Medicine; Referring Provider Family Medicine; Visit Provider Family Medicine
DX: Z34.81 Encounter for supervision of other normal pregnancy, first trimester (principal); Z86.39 Personal history of other endocrine, nutritional and metabolic disease
CPT/HCPCS: 36415; 80055; 81003; 84439; 84443; 86787; 86803; 86850; 86900; 86901; 87086; 87389

== ENCOUNTER → 2023-10-08 11:55 | Outpatient (CLI) | payer OTHER, SELFPAY ==
--- NOTE | 2023-10-08 11:56 | DI.US.S_ITS ---
PROCEDURE: US OB >= 14 WEEKS FETUS INDICATIONS: anatomy OUTSIDE/PRIOR DATING DATA: Last menstrual period (LMP): 05/23/2023. LMP-based estimated date of delivery (YAKOV): 02/28/2024. First dating scan (date and location): 07/18/2023. Estimated date of delivery (YAKOV) from first dating scan: 02/25/2024. The calculations are made using the working YAKOV of 02/28/2024. TECHNIQUE: Real-time scanning was performed of the fetus, with image documentation and biometric measurements. Endovaginal scanning: None COMPARISON: [facility], OB >= 14 WEEKS FETUS, 09/09/2021, 13:03. FINDINGS: General: A single living intrauterine gestation is present. Presentation: Mobile. Placenta: Placental position is anterior , without previa. Amniotic fluid index: 11.0 cm, normal range is 5-24 cm. Single deepest vertical pocket is 3.4 cm. heart rate: 141 beats per minute. Maternal cervical canal: 5.3 cm long. Normal lower limit is 2.5 cm. biometrics: Biparietal diameter: 4.5 cm, 19 week 3 day Head circumference: 17.5 cm, 20 week 0 day Abdominal circumference: 13.7 cm, 19 week 1 day Femur length: 3.4 cm, 20 week 4 day Clinically estimated gestational age: 19 week 4 day Composite gestational age from present scan: 19 week 6 day Estimated weight and percentile: 315 g, 68th percentile Anatomic survey: Neuro: Ventricles are non-dilated at less than 10 mm. Cisterna magna is normal at 3-11 mm. Cerebellum is normal in size and morphology. Nuchal skin fold: Normal at less than 6 mm between 14-21 weeks gestational age. Face: Nose and lips, facial profile are normal. Spine: No evidence for spina bifida. Heart: 4-chambered heart is present, with normal ventricular outflow tracts. Diaphragm: Diaphragm is intact. Stomach: Left-sided stomach is present. Kidneys: No hydronephrosis. Normal is less than 5 mm in 2nd trimester, less than 7 mm in 3rd trimester. Cord: 3-vessel cord has orthotopic insertion. Bladder: Normal in size. Extremities: All 4 extremities identified. IMPRESSION: Single live intrauterine consistent with a 19 week 6 day gestation by current ultrasound Approved by: Jose Bellamy M.D. on 10/08/2023 at 18:44
== END ==
PROVIDERS: PCP Family Medicine; Referring Provider Family Medicine; Visit Provider Family Medicine
DX: Z36.89 Encounter for other specified antenatal screening (principal); Z3A.19 19 weeks gestation of pregnancy
CPT/HCPCS: 76811

== ENCOUNTER 2023-11-01 10:47 | Observation (INO) | payer OTHER, SELFPAY ==
--- NOTE | 2023-11-01 11:36 | P.TNLD_ITS ---
Visit Information Visit Information Date of evaluation: 11/01/23 Primary OB Provider: Samanta Louis On-call OB Provider: Arcelia Sal Reason for Evaluation: Yes pre-term labor Comments/Additional reasons for admission: 28yo at 23w presenting with cramping and episode of pink discharge noted during toilet use. No cramping since here in triage. Denies leaking fluid. Good FM. She says she also feels dehydrated and has been having nausea. Denies vomiting. No f/c/d. History of FT 02/06/22. No history of cervical procedures. complicated by anxiety, depression, hypothyroidism. 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) History of esophagogastroduodenoscopy (EGD) (~03/2016) History of colonoscopy (~03/2016) S/P lumpectomy, right breast (~2016) [place] teeth extracted (~10/2012) History of tonsillectomy and adenoidectomy (~02/2002) Family History Father Corneal transplant failure Alcohol abuse by father Depression Heavy smoker Mental health problem Heart disease Mother Hypertension DVT (deep venous thrombosis) Endometriosis Depression Heavy smoker Hypothyroid Mental health problem Grandfather Alcohol addiction Melanoma Neuropathy Heavy smoker Cancer Hypertension Parkinson's disease Grandmother Diabetes mellitus Hypertension Type 2 diabetes mellitus Heavy smoker Hypothyroid Grandfather Family history of alcohol abuse Alcohol addiction Dementia Heavy smoker Grandmother Blood clotting disorder Hypercoagulable state Hypertension Heavy smoker Stroke Brother Asthma Anxiety Depression Brother Depression Anxiety Hidradenitis suppurativa Autoimmune disorder Family/Other Hypothyroid Family/Other Cancer Throat cancer Social History marital status: number of children: 1 household members: spouse and children lives independently: Yes caregiver/support person: Yes housing: house pets and animals: Yes (2 dogs) education level: master's degree (social work) 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) special bia needs: No travel history: recent (domestic only) seatbelt use: always water heater temp set < 120 deg: Yes working smoke detector in home: Yes fire extinguisher in home: Yes carbon monox detector in home: Yes firearms in home: No do you feel safe at home: Yes Smoking Status: Never smoker second hand exposure: No ( quit) alcohol intake: former (very occasionally when not ) substance use type: does not use during the past year weight has: other (son ~17 months old, not back to pre- baby wt) well-balanced diet: daily or most days daily servings fruits/ve or more times/day caffeine: Yes (aware of 200mg limit (usually 1 cup coffee in AM)) Type(s) of exercise: walking and yoga frequency: daily Review of Systems Review of Systems ROS: Yes All systems reviewed with the patient and are negative except as otherwise documented Exam Const General: cooperative, healthy appearing and comfortable Eyes General: appearance normal, both eyes and all related structures Neck Neck: normal visual inspection Resp Effort & Inspection: normal respiratory effort Cardio Rate: regular rate GI Inspection: normal to inspection Back/Spine/Pelvis Back: normal to inspection Skin General: no rashes or lesions noted Neuro General: patient alert, patient awake and patient oriented x3 Extrem General: normal to inspection Psych Appearance: grossly normal Objective Labs 11/01/23 11:50 11/01/23 11:50 Evaluation Evaluation Baseline heart rate: 140 Contraction Frequency (minutes): 0 Cervical dilation (cm): 0 Cervical effacement (%): 20 station: -3 Comments: Speculum: no blood noted in vagina internally or externally, no pooling SVE closed, long, -3 Date of Service: 10/08/23 [facility] Reviewed Accession Number: [id number] Procedure: OB >= 14 weeks Fetus Ordering Provider: Samanta Louis MD PROCEDURE: OB >= 14 WEEKS FETUS INDICATIONS: anatomy OUTSIDE/PRIOR DATING DATA: Last menstrual period (LMP): 05/23/2023. LMP-based estimated date of delivery (YAKOV): 02/28/2024. First dating scan (date and location): 07/18/2023. Estimated date of delivery (YAKOV) from first dating scan: 02/25/2024. The calculations are made using the working YAKOV of 02/28/2024. TECHNIQUE: Real-time scanning was performed of the fetus, with image documentation and biometric measurements. Endovaginal scanning: None COMPARISON: [facility], OB >= 14 WEEKS FETUS, 09/09/2021, 13:03. FINDINGS: General: A single living intrauterine gestation is present. Presentation: Mobile. Placenta: Placental position is anterior , without previa. Amniotic fluid index: 11.0 cm, normal range is 5-24 cm. Single deepest vertical pocket is 3.4 cm. heart rate: 141 beats per minute. Maternal cervical canal: 5.3 cm long. Normal lower limit is 2.5 cm. biometrics: Biparietal diameter: 4.5 cm, 19 week 3 day Head circumference: 17.5 cm, 20 week 0 day Abdominal circumference: 13.7 cm, 19 week 1 day Femur length: 3.4 cm, 20 week 4 day Clinically estimated gestational age: 19 week 4 day Composite gestational age from present scan: 19 week 6 day Estimated weight and percentile: 315 g, 68th percentile Anatomic survey: Neuro: Ventricles are non-dilated at less than 10 mm. Cisterna magna is normal at 3-11 mm. Cerebellum is normal in size and morphology. Nuchal skin fold: Normal at less than 6 mm between 14-21 weeks gestational age. Face: Nose and lips, facial profile are normal. Spine: No evidence for spina bifida. Heart: 4-chambered heart is present, with normal ventricular outflow tracts. Diaphragm: Diaphragm is intact. Stomach: Left-sided stomach is present. Kidneys: No hydronephrosis. Normal is less than 5 mm in 2nd trimester, less than 7 mm in 3rd trimester. Cord: 3-vessel cord has orthotopic insertion. Bladder: Normal in size. Extremities: All 4 extremities identified. IMPRESSION: Single live intrauterine consistent with a 19 week 6 day gestation by current ultrasound Diagnosis, Plan/Disposition Final Diagnosis (1) Nausea and vomiting during : Status: Acute Problem details: 28yo at 23w with nausea in and false labor (2) False labor before 37 completed weeks of gestation in second trimester: Status: Acute Plan/Disposition Plan: Nausea improved with IVF and Reglan. No cramping here in triage. Benign labs reviewed No signs of labor Discharge to home with labor precautions, follow up as scheduled or earlier prn
[2023-11-01] MEDS: LACTATED RINGERS 1,000 ML 1000 ML IV (11:48)
[2023-11-01] MEDS: METOCLOPRAMIDE 10 MG/2 ML INJ IV (11:48)
[2023-11-01 12:05] LABS: Add Manual Diff / Slide Review NO; Basophils Absolute Auto 0 /uL (0-100); Basophils Percent Auto 0.3 % (0-2); Eosinophils Absolute Auto 0 /uL (0-450); Eosinophils Percent Auto 0.5 % (2-4); Hematocrit 33.4 % (36-46); Hemoglobin 11.8 g/dL (12.0-16.0); Lymphocytes Absolute Auto 1000 /uL (1100-4500); Mean Corpuscular HGB Conc 35.3 % (30-36); Mean Corpuscular Hemoglobin 33.4 PG (26-34); Mean Corpuscular Volume 94.8 fL (80-100); Monocytes Absolute Auto 500 /uL (0-900); Monocytes Percent Auto 6.1 % (3-14); Neutrophils Absolute Auto 6400 /uL (1500-7000); Neutrophils Percent Auto 80.1 % (50-75); Platelet Count 208 X10^3/uL (150-400); Red Blood Cell Count 3.52 X10^6/uL (4.0-5.2); Red Cell Distribution Width 12.8 % (11.6-14.8)
[2023-11-01 12:18] LABS: Alanine Aminotransferase 13 IU/L (<35); Albumin 3.8 g/dL (3.5-5.0); Albumin Globulin Ratio 1.1 (1.0-2.8); Alkaline Phosphatase 49 U/L (38-126); Aspartate Aminotransferase 20 IU/L (14-36); BUN Creatinine Ratio 11.1 (6-22); Bilirubin Total 0.4 mg/dL (0.2-1.3); Blood Urea Nitrogen 4 mg/dL (7-17); Calcium 9.3 mg/dL (8.4-10.2); Carbon Dioxide 23 mmol/L (22-32); Chloride 104 mmol/L (98-107); Estimated Glomerular Filt Rate > 60 mL/min (>60); Globulin 3.4 g/dL (1.7-4.1); Glucose 89 mg/dL (70-100); HEMOLYSIS < 15 (0-50); Potassium 3.5 mmol/L (3.4-5.1); Sodium 134 mmol/L (137-145); Total Protein 7.2 g/dL (6.3-8.2)
== END 2023-11-01 13:04 | disposition home or self-care (01) ==
PROVIDERS: Admitting Provider Obstetrics & Gynecology; PCP Family Medicine; Referring Provider Obstetrics & Gynecology; Visit Provider Obstetrics & Gynecology
DX: O47.02 False labor before 37 completed weeks of gestation, second trimester (principal); O21.9 Vomiting of pregnancy, unspecified; Z3A.23 23 weeks gestation of pregnancy
CPT/HCPCS: 59025; 59050; 80053; 85025; 96360; G0378; G0379; J2765

== ENCOUNTER → 2023-12-03 14:24 | Outpatient (CLI) | payer OTHER, SELFPAY ==
--- NOTE | 2023-12-03 14:25 | DI.US.S_ITS ---
PROCEDURE: US OB LIMITED INDICATIONS: contractions, cervical length OUTSIDE/PRIOR DATING DATA: Last menstrual period (LMP): 05/23/2023. LMP-based estimated date of delivery (YAKOV): 02/28/2024. First dating scan (date and location): 07/18/2023. Estimated date of delivery (YAKOV) from first dating scan: 02/25/2024. The calculations are made using the clinical YAKOV of 02/28/2024. TECHNIQUE: Real-time scanning was performed of the fetus, with image documentation. COMPARISON: [facility], OB LIMITED, 01/20/2022, 10:17. [facility], OB >= 14 WEEKS FETUS, 10/08/2023, 12:39. FINDINGS: A single living intrauterine gestation is present. Presentation: Breech Placenta: Placental position is anterior, without previa. Placental lilly is noted measuring 1.8 x 1.6 x 1.4 cm. Amniotic fluid index: 13.4 cm, normal range is 5-24 cm. Single deepest vertical pocket is 0.7 cm. heart rate: 162 beats per minute. Maternal cervical canal: 2.8-3.2 cm long. Normal lower limit is 2.5 cm. Clinically estimated gestational age: 27 weeks 4 days IMPRESSION: Single live intrauterine with ultrasound gestational age of 27 weeks 4 days. Cervix is closed. Dictated by: Gudelia Erickson M.D. on 12/03/2023 at 22:12 Approved by: Gudelia Erickson M.D. on 12/03/2023 at 22:15
== END ==
PROVIDERS: PCP Family Medicine; Referring Provider Family Medicine; Visit Provider Family Medicine
DX: O47.9 False labor, unspecified (principal); Z3A.27 27 weeks gestation of pregnancy
CPT/HCPCS: 76815

== ENCOUNTER → 2023-12-14 13:55 | Outpatient (CLI) | payer OTHER, SELFPAY ==
--- NOTE | 2023-12-14 13:56 | DI.ECHO.S_ITS ---
[place] +---------+ [facility] +---------+ : : [address] : : : : [id number] : : : : Phone: [phone]+ Echocardiogram Report + + :Name: YO MCNULTY Study Date: 12/14/2023 Height: 67 in : :[facility] ReadingLocation: Weight: 190 lb : : Gender: Female BSA: 2.0 m2 : :: 1995 Age: 28 yrs BP: 107/69 mmHg: :Reason For Study: CHEST PRESSURE : :Ordering Physician: ARLEY, : :MAILE Performed By: Claudia Mckinney : :Referring: MAILE TUBBS : + + Interpretation Summary Normal sinus rhythm. Normal LV size, wall thickness, wall motion and LV systolic function. EF is 60-65%. Normal chamber sizes. No valvular abnormalities. No prior study available for comparison. Procedure: A two-dimensional transthoracic echocardiogram with color flow and Doppler was performed. The study quality was technically adequate. There is no prior echocardiogram noted for this patient. The patient was in sinus rhythm with heart rates between 70-95 bpm during the exam. Left Ventricle: The left ventricle is normal in size and wall thickness. The left ventricular ejection fraction is grossly normal. The ejection fraction is estimated to be 60-65%. Right Ventricle: The right ventricle is borderline dilated. The right ventricular systolic function is normal. Atria: The left atrial size is normal. Right atrial size is normal. There is no Doppler evidence for an interatrial shunt. Mitral Valve: The mitral valve is normal in structure and function. There is trace mitral regurgitation. Aortic Valve: The aortic valve is trileaflet. The aortic valve opens well. There is no aortic valve stenosis. No aortic regurgitation is present. Tricuspid Valve: The tricuspid valve is normal in structure and function. There is trace tricuspid regurgitation. Pulmonic Valve: The pulmonic valve leaflets are thin and pliable; valve motion is normal. There is trace pulmonic regurgitation. Great Vessels: The aortic root is normal size. The dimensions of the ascending aorta are normal. The IVC is of normal diameter and collapses greater than 50% with a sniff. This suggests a low right atrial pressure of 3 mm Hg. Pericardium/ Pleura There is no pericardial effusion. There is no pleural effusion. MMode/2D Measurements & Calculations LVIDd: 4.9 cm LVOT diam: 2.3 cm LVIDs: 3.4 cm Ao root diam: 2.9 cm FS: 30.7 % asc Aorta Diam: 2.6 cm EPSS: 0.95 cm Ao Arch Diam (Prox Trans): 2.5 cm IVSd: 0.76 cm LVPWd: 0.82 cm LV loera. diameter/BSA (cm/m^2): 2.5 LV sys. diameter/BSA (cm/m^2): 1.7 LA A2 area: 18.5 cm2 RA long axis: 5.2 cm LA A4 area: 19.4 cm2 RA area: 19.0 cm2 LA length (vol): 4.9 cm RA vol: 58.9 ml LA vol: 62.6 ml RA : 29.8 ml/m2 LA vol index: 31.6 ml/m2 IVC diam: 1.1 cm RVD1 (basal): 4.1 cm RVD2 (mid): 3.3 cm TAPSE: 2.0 cm Doppler Measurements & Calculations Ao V2 max: 158.2 cm/sec LVOT Max Prashant: 120.0 cm/sec Ao V2 mean: 110.3 cm/sec LV V1 max P.8 mmHg Ao max P.0 mmHg LV V1 VTI: 22.8 cm Ao mean P.4 mmHg SILVER(I,D): 3.2 cm2 Ao V2 VTI: 30.6 cm SILVER(V,D): 3.3 cm2 sev ratio: 0.74 SILVER indexed to BSA (cm^2/m^2): 1.6 MV E max prashant: 85.4 cm/sec PA V2 max: 97.8 cm/sec MV A max prashant: 62.4 cm/sec PA V2 mean: 68.5 cm/sec MV E/A: 1.4 PA mean P.1 mmHg Med Peak E' Prashant: 10.9 cm/sec PA pr(Accel): 36.2 mmHg E/E' med: 7.8 Lat Peak E' Prashant: 12.8 cm/sec E/E' lat: 6.7 E/e' average: 7.2 MV dec time: 0.24 sec SV([facility]): 98.0 ml Electronically signed by: Maite Walter M.D. on Reading Physician:12/15/2023 05:20 AM
[2023-12-14 18:02] LABS: GTT (PREG) 1 Hour PP 50gm Dose 104 mg/dL (76-139)
== END ==
PROVIDERS: PCP Family Medicine; Referring Provider Family Medicine; Visit Provider Family Medicine
DX: O99.891 Other specified diseases and conditions complicating pregnancy (principal); R07.89 Other chest pain
CPT/HCPCS: 36415; 82950; 93306

== ENCOUNTER → 2024-02-04 13:57 | Outpatient (CLI) | payer OTHER, SELFPAY ==
[2024-02-05 15:24] LABS: Strep Grp B PCR NEG for Grp B Strep
== END ==
PROVIDERS: PCP Family Medicine; Visit Provider Family Medicine
DX: Z34.81 Encounter for supervision of other normal pregnancy, first trimester (principal)
CPT/HCPCS: 87653

== ENCOUNTER 2024-02-05 17:42 | Outpatient (CLI) | payer OTHER, SELFPAY | END 2024-02-05 18:31 | disposition home or self-care (01) | LOC: OB 02-12 09:44 | PROVIDERS: PCP Family Medicine; Referring Provider Family Medicine; Visit Provider Family Medicine | DX: O42.913 Preterm premature rupture of membranes, unspecified as to length of time between rupture and onset of labor, third trimester (principal); O47.03 False labor before 37 completed weeks of gestation, third trimester; Z3A.36 36 weeks gestation of pregnancy | CPT/HCPCS: 59025; 84112; G0378; G0379 ==

== ENCOUNTER 2024-02-14 23:54 | Outpatient (CLI) | payer OTHER, SELFPAY | END 2024-02-15 00:50 | disposition home or self-care (01) | LOC: LABOR 23:58 → OB 03-03 08:54 | PROVIDERS: PCP Family Medicine; Referring Provider Obstetrics & Gynecology; Visit Provider Obstetrics & Gynecology | DX: O47.1 False labor at or after 37 completed weeks of gestation (principal); Z3A.38 38 weeks gestation of pregnancy | CPT/HCPCS: 59025; G0378; G0379 ==

== ENCOUNTER 2024-02-21 16:47 | Outpatient (CLI) | payer OTHER, SELFPAY | END 2024-02-21 17:20 | disposition home or self-care (01) | LOC: LABOR 17:26 → OB 02-29 14:32 | PROVIDERS: PCP Family Medicine; Referring Provider Family Medicine; Visit Provider Family Medicine | DX: O47.1 False labor at or after 37 completed weeks of gestation (principal); Z3A.39 39 weeks gestation of pregnancy | CPT/HCPCS: 59025; G0378; G0379 ==

== ENCOUNTER 2024-02-22 12:54 | Inpatient (IN) | payer OTHER, SELFPAY ==
[2024-02-22 13:47] LABS: Add Manual Diff / Slide Review NO; Basophils Absolute Auto 0 /uL (0-100); Basophils Percent Auto 0.2 % (0-2); Eosinophils Absolute Auto 100 /uL (0-450); Eosinophils Percent Auto 0.9 % (2-4); Hematocrit 35.9 % (36-46); Hemoglobin 12.4 g/dL (12.0-16.0); Lymphocytes Absolute Auto 1200 /uL (1100-4500); Lymphocytes Percent Auto 16.8 % (25-40); Mean Corpuscular HGB Conc 34.4 % (30-36); Mean Corpuscular Hemoglobin 33.3 PG (26-34); Mean Corpuscular Volume 96.8 fL (80-100); Monocytes Absolute Auto 400 /uL (0-900); Monocytes Percent Auto 6.2 % (3-14); Neutrophils Absolute Auto 5400 /uL (1500-7000); Neutrophils Percent Auto 75.9 % (50-75); Platelet Count 153 X10^3/uL (150-400); Red Blood Cell Count 3.71 X10^6/uL (4.0-5.2); Red Cell Distribution Width 13.5 % (11.6-14.8); White Blood Cell Count 7.1 X10^3/uL (4.5-11.0)
[2024-02-22] MEDS: ONDANSETRON 4 MG/2 ML INJ IV ×2 (13:51→19:24)
[2024-02-22] MEDS: miSOPROStoL 25 MCG TABLET 50 MCG PO (13:51)
--- NOTE | 2024-02-22 14:10 | P.HPOB_ITS ---
OB HPI Date/Time Date of admission: 02/22/24 Date Patient Seen: 02/22/24 Time Patient Seen: 13:10 History of Present Condition Chief complaint: INDUCTION YAKOV Calculator 2 Estimated Delivery Date Method Current WG Current Estimate 02/28/24 Manual 39w 1d Final YAKOV - ROSEMARY Other Estimates 02/28/24 LMP (Certain) 39w 1d 02/25/24 Ultrasound #1 39w 4d Estimated Gestational Age (weeks): 39w1d : 2 Para: 1 Narrative: Pt is a 28yo at 39w1d here for elective IOL. Pt has been darren intermittently at home for the past week. She is feeling her baby move regularly. She denies any vaginal bleeding or LOF. Her has been complicated by anxiety/depression on 150mg Sertraline with good control. care: good care, initiated at week # (7) and pounds weight gain (34) Dating criteria OB: LMP confirmed by 1st trimester US Ultrasounds: normal 1st trimester US and normal mid trimester US Obstetrical complications: none Medical complications OB: psychiatric (anxiety/depression) Indications Indication for induction OB: other (elective) Preadmission Labs Last OB Lab Results: 2 Blood Type A Positive 07/18/23 13:47 Antibody Screen Negative 07/18/23 13:47 Hematocrit 35.9 % (36-46) L 02/22/24 13:25 Hemoglobin 12.4 g/dL (12.0-16.0) 02/22/24 13:25 Hepatitis B Surface Antigen Negative s/c (NEGATIVE) 07/18/23 13 :47 Hepatitis C Antibody Negative s/c (NEGATIVE) 07/18/23 13:47 Rubella Antibody 9.2 IU/mL (>15) L 07/18/23 13:47 Varicella-Zoster IgG Antibody 950 index (Immune >165) 07/18/23 13:47 Glucose 1 Hour 104 mg/dL (76-139) 12/14/23 15:23 Group B Streptococcus (PCR) Neg for grp b strep 02/04/24 13:57 -: Urine: negative External Labs -: Urine: negative Prior (ies) Past Pregnancies Del. Date GA/Weeks Labor Lgth Wt Sex Route Outcome Anesthesia Place Delv Breastfeed Preg Comp Name 02/06/22 39.4 16 8 lb 5 oz Male vaginal live - full term ep idural IH 12.5 months other Renzo Delivery Date: 02/06/22 Last Updated by: Tammy Ogden RN Covid ~37 weeks; needed repeat epidural Evaluation Evaluation Baseline heart rate: 130 Variability: Moderate (11-25) monitor accelerations: Present Monitor Decelerations: Absent Status: Category l Dilation (cm): 3 Effacement (%): 70 Dilation: 3-4 cm Effacement: 60-70% station: -1 Position of cervix: posterior Consistency: soft Doty score: 8 PFSH Medical History Spontaneous vaginal delivery Headache (~2007) Chicken pox (~1993) History of recurrent ear infection Painful menstrual periods (~2006) Heavy menstrual period (~2006) Seizure (~2018) Seizure (~2005) Anxiety (~2008) Depression (~2008) Stress fracture, left foot, initial encounter for fracture (~2015) Stress fracture of right femur (~2015) Chronic lower back pain Chronic migraine Hypothyroid (~2008) Surgical History Anesthesia History of placement of ear tubes (~1994) 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) History of esophagogastroduodenoscopy (EGD) (~03/2016) History of colonoscopy (~03/2016) S/P lumpectomy, right breast (~2016) [place] teeth extracted (~10/2012) History of tonsillectomy and adenoidectomy (~02/2002) Family History Father Corneal transplant failure Alcohol abuse by father Depression Heavy smoker Mental health problem Heart disease Mother Hypertension DVT (deep venous thrombosis) Endometriosis Depression Heavy smoker Hypothyroid Mental health problem Grandfather Alcohol addiction Melanoma Neuropathy Heavy smoker Cancer Hypertension Parkinson's disease Grandmother Diabetes mellitus Hypertension Type 2 diabetes mellitus Heavy smoker Hypothyroid Grandfather Family history of alcohol abuse Alcohol addiction Dementia Heavy smoker Grandmother Blood clotting disorder Hypercoagulable state Hypertension Heavy smoker Stroke Brother Asthma Anxiety Depression Brother Depression Anxiety Hidradenitis suppurativa Autoimmune disorder Family/Other Hypothyroid Family/Other Cancer Throat cancer Social History marital status: number of children: 1 household members: spouse and children lives independently: Yes caregiver/support person: Yes housing: house pets and animals: Yes (2 dogs) education level: master's degree (social work) 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) special bia needs: No travel history: recent (domestic only) seatbelt use: always water heater temp set < 120 deg: Yes working smoke detector in home: Yes fire extinguisher in home: Yes carbon monox detector in home: Yes firearms in home: No do you feel safe at home: Yes Smoking Status: Never smoker second hand exposure: No ( quit) alcohol intake: former (very occasionally when not ) substance use type: does not use during the past year weight has: other (son ~17 months old, not back to pre- baby wt) well-balanced diet: daily or most days daily servings fruits/ve or more times/day caffeine: Yes (aware of 200mg limit (usually 1 cup coffee in AM)) Type(s) of exercise: walking and yoga frequency: daily Meds Home Medications and Allergies Home Medications Medication Instructions Recorded Confirmed Type epinephrine 0.3 mg/0.3 mL 0.3 mg IM Q5-15M PRN Allergic 06/22/21 02/18/24 History injection, auto-injector (EpiPen Reaction 2-Reinaldo) breast pump #1 ea 12/12/21 02/18/24 Rx omeprazole 20 mg capsule,delayed 20 mg PO DAILY #30 caps 12/19/21 02/18/24 Rx release docusate sodium 100 mg tablet 100 mg PO BID #60 tabs 07/18/23 02/18/24 Rx prenat.vits,angel,dxe-fwkw-bkxdj 1 tab PO DAILY #90 tabs 07/18/23 02/18/24 Rx ondansetron 4 mg disintegrating 4 mg PO Q6H PRN nausea and 07/23/23 02/18/24 Rx tablet vomiting #20 tabs promethazine 25 mg tablet 25 mg PO Q6H PRN nausea and 10/08/23 02/18/24 Rx vomiting #30 tabs sertraline 100 mg tablet 150 mg (1.5 x 100 mg) PO DAILY 10/08/23 02/18/24 Rx #135 tabs Double Electric Breast Pump and #1 ea 12/17/23 02/18/24 Rx Supplies famotidine 20 mg tablet 20 mg PO BID #60 tabs 12/17/23 02/18/24 Rx nifedipine 10 mg capsule 10 mg PO TID PRN contraction #30 01/26/24 02/18/24 Rx caps Allergies Allergy/AdvReac Type Severity Reaction Status Date / Time amoxicillin Allergy Intermediate Rash and Verified 02/18/24 13:58 Hives to neck : no trouble breathing Penicillins Allergy Intermediate Rash and Verified 02/18/24 13:58 Hives to neck : no trouble breathing diphenhydramine AdvReac Severe Racing Verified 02/18/24 13:58 [From Benadryl] heart oxycodone [From Percocet] AdvReac Severe Severe Verified 02/18/24 13:58 vomiting jessica Allergy Severe Anaphylaxis Uncoded 02/18/24 13:58 has an Epi-pen OB Exam Resp Effort & Inspection: normal respiratory effort Auscultation: clear to auscultation bilaterally Cardio Rate: regular rate Rhythm: regular rhythm Heart Sounds: S1 normal, S2 normal and no murmurs GI Inspection: non-distended Palpation: Yes soft and No tender Presentation: vertex Objective Labs 02/22/24 13:25 Labs: Laboratory Results - last 24 hr 02/22/24 13:25 WBC 7.1 RBC 3.71 L Hgb 12.4 Hct 35.9 L MCV 96.8 MCH 33.3 MCHC 34.4 RDW 13.5 Plt Count 153 Neut % (Auto) 75.9 H Lymph % (Auto) 16.8 L Castro % (Auto) 6.2 Eos % (Auto) 0.9 L Baso % (Auto) 0.2 Neut # (Auto) 5400 Lymph # (Auto) 1200 Castro # (Auto) 400 Eos # (Auto) 100 Baso # (Auto) 0 Assessment and Plan Assessment and Plan Assessment and Plan narrative: Pt is a 28yo at 39w1d here for elective IOL. GBS negative, Rh positive. Doty score currently 8, however due to staffing will start with cytotec. - Anticipate - Cytotec 50mcg orally now - Intermittent monitoring okay - FHT reassuring - GBS negative, no prophylaxis indicated - Epidural for pain control when desired
--- NOTE | 2024-02-22 18:28 | PM.OBPNLAB ---
Date/Time Date Patient Seen: 02/22/24 Time Patient Seen: 18:28 Pain Control Pain control: tolerating well Pelvic Exam Dilation (cm): 3.5 Effacement (%): 70 station: -2 Amniotic membrane status: Ruptured Comments: After informed consent, AROM performed with copious clear fluid present Status status: Category l Heart Rate Baseline: 150 Monitor Accelerations: Present Monitor Decelerations: Absent Monitor Variability: Moderate Assessment and Plan Comments: Pt is a 28yo at 39w1d here for elective IOL. GBS negative, Rh positive. Received single dose of cytotec, now with more painful contractions. AROM with clear fluid present. - Anticipate - Intermittent monitoring okay - FHT reassuring - Epidural for pain control when desired - Monitor contractions, if no increasing in intensity will initiate pitocin
[2024-02-22] MEDS: fentaNYL 100 MCG/2 ML INJ 50 MCG IV (19:23)
[2024-02-22] MEDS: LACTATED RINGERS 1,000 ML 100 ML IV (19:24)
--- NOTE | 2024-02-22 20:26 | PM.AN.REGBLK ---
Regional Block Pre-procedure Procedure: Continuous Lumbar Epidural for L&D Attending OB provider: Samanta Louis PMH/ROS narrative: 28yo healthy female. Hx: No personal or family history of anesthesia problems. PSH/Anesthesia history narrative: Labor epidural ASA Class: II Labs: Hct 35.9 % (36-46) L 02/22/24 13:25 Plt Count 153 X10^3/uL (150-400) 02/22/24 13:25 Medications: Current Medications Generic Name Dose Route Start Last Admin Trade Name Freq PRN Reason Stop Dose Admin Calcium Carbonate 1,000 mg 02/22/24 13:39 Calcium Carbonate 500 Mg Tab PO Q4HR PRN Dyspepsia Carboprost Tromethamine 250 mcg 02/22/24 13:39 Carboprost 250 Mcg/Ml Ampul IM Q90M PRN Bleeding Diphenhydramine HCl 25 mg 02/22/24 20:23 Diphenhydramine 50 Mg/Ml Vial IV Q10M PRN Pruritis Ephedrine Sulfate 5 mg 02/22/24 20:23 Ephedrine 50 Mg/Ml Vial IV Q5M PRN Blood pressure decrease more than 20% of baseline. Fentanyl 50 mcg 02/22/24 13:39 02/22/24 19:23 Fentanyl 100 Mcg/2 Ml Inj IV 50 mcg Q1H PRN Administration Pain, Moderate (4-6) Oxytocin/Lactated Ringer's 30 unit in 500 mls @ 2 mls/hr 02/22/24 13:45 Oxytocin Premix IV TITRATE JEIMY Protocol 2 MILLIUNIT/MIN Tranexamic Acid 1,000 mg/ 100 mls @ 200 mls/hr 02/22/24 13:39 Sodium Chloride IV NOW PRN Bleeding Lactated Ringer's 1,000 mls @ 100 mls/hr 02/22/24 13:45 02/22/24 19:24 Lactated Ringers IV 100 mls/hr CONT JEIMY Administration Oxytocin/Lactated Ringer's 30 unit in 500 mls @ 200 mls/hr 02/22/24 13:39 Oxytocin Premix IV CONT PRN Bleeding Protocol Oxytocin/Lactated Ringer's 30 unit in 500 mls @ 2 mls/hr 02/22/24 16:15 Oxytocin Premix IV TITRATE JEIMY Protocol 2 MILLIUNIT/MIN FENT 2MCG/ML BUPIV 0.125% EPI 200 mcg in 100 mls @ 8 mls/hr 02/22/24 20:30 Fentanyl/Bupiv/Ns 2mcg/Ml - 0.125% EPIDURAL CONT JEIMY Lidocaine HCl 20 ml 02/22/24 13:39 Lidocaine 1% 20 Ml INJ INTRA-OP PRN Post Delivery Methylergonovine Maleate 0.2 mg 02/22/24 13:39 Methylergonovine 0.2 Mg/Ml Vial IM NOW PRN Bleeding Methylergonovine Maleate 0.2 mg 02/22/24 13:39 Methylergonovine 0.2 Mg Tablet PO Q6HR PRN Heavy Bleeding Misoprostol 400 mcg 02/22/24 13:39 Misoprostol 200 Mcg Tablet SL NOW PRN Bleeding Misoprostol 800 mcg 02/22/24 13:39 Misoprostol 200 Mcg Tablet LA NOW PRN Bleeding Nalbuphine HCl 2.5 mg 02/22/24 20:23 Nalbuphine 20 Mg/Ml Ampul IV Q10M PRN Pruritis Naloxone HCl 0.2 mg 02/22/24 13:39 Naloxone 0.4 Mg/Ml Vial IV Q2MIN PRN Opiate Reversal Ondansetron HCl 4 mg 02/22/24 13:39 02/22/24 19:24 Ondansetron 4 Mg/2 Ml Inj IV 4 mg Q4HR PRN Administration Nausea And Vomiting Oxytocin 10 unit 02/22/24 13:39 Oxytocin 10 Unit/Ml Vial IM NOW PRN Bleeding Allergies: Allergies Allergy/AdvReac Type Severity Reaction Status Date / Time amoxicillin Allergy Intermediate Rash and Verified 02/18/24 13:58 Hives to neck : no trouble breathing Penicillins Allergy Intermediate Rash and Verified 02/18/24 13:58 Hives to neck : no trouble breathing diphenhydramine AdvReac Severe Racing Verified 02/18/24 13:58 [From Benadryl] heart oxycodone [From Percocet] AdvReac Severe Severe Verified 02/18/24 13:58 vomiting jessica Allergy Severe Anaphylaxis Uncoded 02/18/24 13:58 has an Epi-pen Procedure Insertion date: 02/22/24 Insertion time: 19:59 Prep/Local: betadine x3 and 1% lidocaine Interspace: L3-L4 Patient position: sitting Needle: 18 gauge Cassy Loss of resistance with: saline NAHUM at (cm): 8 Catheter placed at SKIN (cm): 15 Catheter in SPACE (cm): 7 Insertion: No CSF, No Blood, No Paresthesia with insertion, No Paresthesia with injection and No Test dose reaction Initial Medications TEST DOSE time: 20:00 TEST DOSE: 1.5% lidocaine with epinephrine 1:200k (mL): 3 BOLUS DOSE time: 20:04 BOLUS DOSE (mL): 10 BOLUS DOSE med: other (2% Lidocaine) Infusion INFUSION: 0.125% bupivacaine and with fentanyl 2 mcg/mL Initial rate (mL/hr): 8 Subsequent interventions: Vaginal delivery at 2205 Post-procedure Anesthesia date START: 02/22/24 Anesthesia time START: 19:30 Anesthesia date END: 02/22/24 Anesthesia time END: 23:05 Post-procedure Anesthesia Assessment: Yes CV function: HR/BP stable, Yes Resp function: RR/sat/airway adequate, Yes Post-op hydration adequate, Yes Pain control adequate, Yes Nausea & vomiting absent, Yes Temperature > 36 C and Yes Mental status appropriate
--- NOTE | 2024-02-22 22:37 | P.PCNOB_ITS ---
Labor & Delivery Delivery date: 02/22/24 Intrapartal Events: None Cervical ripening method: per misoprostal protocol Induction method: AROM Delivery monitor: external FHT and external uterine Route of delivery: Episiotomy description: None L&D Laceration Description: Perineal - 2nd Degree Quantitative Blood Loss: 150 Anesthesia Type: Epidural Complications: None Narrative: PROCEDURE: at 39w1d presented for elective IOL and was admitted to Labor and Delivery. She received one dose of cytotec. AROM was then performed with clear fluid present. She had an epidural for pain control. The patient progressed through the 1st stage over 2 hours. The patient progressed through the 2nd stage over 1 hour and delivered a viable female infant with APGARs 8/8 at 22:05 via without complications. The cord was cut and clamped after it s topped pulsating. The placenta delivered with gentle cord traction, and appeared complete. The perineum and vagina were inspected with 2nd degree perineal laceration repaired with 2-O Vicryl. Needle and sponge counts were correct.? The vagina was inspected and no items were left in situ. Amparo was doing well with Mariola, her and her at bedside. PREPROCEDURE DIAGNOSIS: Intrauterine at 39w1d GBS negative RH positive POSTPROCEDURE DIAGNOSIS: Intrauterine at 39w1d, delivered Same as preprocedure [place] Baby 1: Infant gender: Female Presentation: vertex Position: Right Occiput Anterior Placenta delivery description: Spontaneous Cord Vessel Description: 3 Vessels score (1 min): 8 score (5 min): 8 weight: 8 lb 10.732 oz Plan for aftercare: Routine care
[2024-02-23] MEDS: IBUPROFEN 600 MG TABLET PO ×3 (00:09→13:00)
[2024-02-23] MEDS: ACETAMINOPHEN 325 MG TABLET 650 MG PO ×3 (00:09→13:00)
[2024-02-23] MEDS: LANOLIN OINT 7 GM 1 APPLIC TOP (00:10)
[2024-02-23] MEDS: DERMOPLAST SPRAY 20% 60 ML 1 SPRAY TOP (00:10)
[2024-02-23] MEDS: DOCUSATE 100 MG CAPSULE PO (10:01)
--- NOTE | 2024-02-23 11:59 | PM.OBDS.1 ---
Discharge Providers Provider Date of admission: 02/22/24 12:54 Discharge Date: 02/23/24 Primary care physician: Samanta Louis MD Consults: 02/23/24 22:38 Consult to Technical Project Manager Routine Comment: Discharge provider: Samanta Louis MD Summary Hospital Course Date Patient Seen: 02/23/24 Diagnoses: Intrauterine at 39w1d GBS negative RH positive Hospital Course: The pt presented for elective IOL. She received cytotec, and then AROM was performed with clear fluid present. The pt had an epidural for pain control. She progressed to complete, and had an of a viable baby girl without complications. , there were no complications. At the time of discharge she was voiding, ambulating, and passing flatus without difficulty. Her lochia was decreasing appropriately. Her pain was well controlled. She was with good latch. She will f/u in 6 weeks for check. Peripartum Data Infant Delivery Method: Natural Vaginal Laceration Description: Perineal - 2nd Degree Episiotomy description: None Procedures: Spontaneous vaginal delivery complications: none [place] 1: Gender: Female Disposition of : home Time Spent with Patient Time attestation: Total time spent providing and/or coordinating discharge services: Objective Labs 02/22/24 13:25 Labs: Laboratory Results - last 24 hr 02/22/24 13:25 WBC 7.1 RBC 3.71 L Hgb 12.4 Hct 35.9 L MCV 96.8 MCH 33.3 MCHC 34.4 RDW 13.5 Plt Count 153 Neut % (Auto) 75.9 H Lymph % (Auto) 16.8 L [place] % (Auto) 6.2 Eos % (Auto) 0.9 L Baso % (Auto) 0.2 Neut # (Auto) 5400 Lymph # (Auto) 1200 [place] # (Auto) 400 Eos # (Auto) 100 Baso # (Auto) 0 Blood Type A Positive Antibody Screen Negative Exam Narrative Exam Narrative: Gen: NAD, sitting comfortably in bed, appears well CV: RRR, no murmurs Resp: clear to auscultation bilaterally Abd: soft, appropriately tender, fundus firm and below the umbilicus, nondistended Ext: no edema Discharge Plan Discharge orders & Medications Discharge Orders: Discharge (Order); Ordered 02/23/24 Ordered By: Samanta Louis Prescriptions: New acetaminophen 325 mg Tablet 650 mg PO Q6HR PRN (Reason: Pain, Mild (1-3)) Qty: 30 0RF docusate sodium 100 mg Capsule 100 mg PO DAILY Qty: 30 0RF ibuprofen 600 mg Tablet 600 mg PO Q6HR PRN (Reason: Pain, Mild (1-3)) Qty: 60 0RF Continued omeprazole 20 mg capsule,delayed release(DR/EC) 20 mg PO DAILY Qty: 30 2RF prenat.vits,angel,gde-cjha-zcvpr Tablet 1 tab PO DAILY Qty: 90 3RF sertraline 100 mg tablet 150 mg PO DAILY Qty: 135 3RF famotidine 20 mg tablet 20 mg PO BID Qty: 60 3RF (DME) Double Electric Breast Pump and Supplies See Rx Instructions .ROUTE .MEDSUPPLY Qty: 1 0RF Rx Instructions: As directed (DME) breast pump Device See Rx Instructions .ROUTE .MEDSUPPLY Qty: 1 0RF Rx Instructions: As directed epinephrine [EpiPen 2-Reinaldo] 0.3 mg/0.3 mL auto-injector 0.3 mg IM Q5-15M PRN (Reason: Allergic Reaction) Rx Instructions: do not exceed 3 doses per episode Discontinued docusate sodium 100 mg tablet 100 mg PO BID Qty: 60 2RF promethazine 25 mg tablet 25 mg PO Q6H PRN (Reason: nausea and vomiting) Qty: 30 2RF ondansetron 4 mg tablet,disintegrating 4 mg PO Q6H PRN (Reason: nausea and vomiting) Qty: 20 0RF nifedipine 10 mg capsule 10 mg PO TID PRN (Reason: contraction) Qty: 30 0RF Follow up/Referrals: Samanta Louis MD [Primary Care Provider] - 6 Weeks Diet/Activity/Treatments Diet: Diet as Tolerated and Regular Skin/Wound/Dressing Care Report to your healthcare provider any signs of infection, such as:: chills, fever, increased pain and unusual drainage Visit Report/Discharge Packet Instructions: DI for Labor and Delivery, Vaginal Stand Alone Forms: Patient Portal/API, Stroke Signs & Symptoms Discharge Data Primary Care Provider: Samanta Louis
[2024-02-23 15:08] VITALS: BP 108/67; PULSE 87; RESP 17; TEMP 37.2
[2024-02-23] MEDS: MEASLES,MUMPS,RUBELLA VACC/PF 0.5 ML VIAL SUBCUT (17:12)
== END 2024-02-23 17:30 | disposition home or self-care (01) | DRG 807 ==
PROVIDERS: Admitting Provider Family Medicine; PCP Family Medicine; Referring Provider Family Medicine; Visit Provider Family Medicine
DX: O70.1 Second degree perineal laceration during delivery (principal); Z37.0 Single live birth; Z3A.39 39 weeks gestation of pregnancy
CPT/HCPCS: 36415; 59050; 59200; 59400; 85025; 86850; 86900; 86901; G0379; J2405; J3010

== ENCOUNTER 2024-08-22 10:30 | Outpatient (RCR) | payer OTHER, SELFPAY ==
--- NOTE | 2024-08-04 18:08 | PT.OIE ---
Current Diagnoses Unspecified condition associated with female genital organs and menstrual cycle (08/04/24) Past Medical History (Last Reviewed 01/10/24 @ 17:59 by Richie Rhoades MD) Anxiety (~2008) Chicken pox (~1993) Chronic lower back pain Chronic migraine Depression (~2008) Headache (~2007) Heavy menstrual period (~2006) History of recurrent ear infection Hypothyroid (~2008) Painful menstrual periods (~2006) Seizure (~2005) Seizure (~2018) Spontaneous vaginal delivery Stress fracture of right femur (~2015) Stress fracture, left foot, initial encounter for fracture (~2015) Past Surgical History (Last Reviewed 01/10/24 @ 17:59 by Richie Rhoades MD) Anesthesia 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 Address: [address] [place] [address], [facility] Email: [email or web address] Physical Therapy Initial Evaluation PT-OP-A Visit Information Start: 07/15/24 18:14 Freq: Status: Active Protocol: Document 08/04/24 07:33 LRN (Rec: 08/04/24 08:22 LRN [id number]) Out-Patient Physical Therapy Visit Information Visit Information Visit Type Initial Evaluation Visit Start Time 07:33 Visit Stop Time 08:18 Visit Number 1 Evaluation Information Evaluation Date 08/04/24 Precautions Precautions Tape allergies, seizures, depression/anxiety controlled by meds, thyroid disorder, back & neck pain. PT-OP-B Current Condition Start: 07/15/24 18:14 Freq: Status: Active Protocol: Document 08/04/24 07:33 LRN (Rec: 08/04/24 08:22 LRN [id number]) Current Condition History of Current Condition Onset Date 10/2023. Current Complaints Pubic pain, pain with intercourse, stress urinary leakage. History of Current Condition Pt reports having daughter in January (02/22/24) and had severe Pelvic pain (pointing to pubs ), and now still struggles with it when lying on side and occasionally thorughout the day in a sit position (no pain with standing or walking). She reports internal pelvic pain with sexual intercourse ( missionary position or any position the legs are spread gets hip pain) with deep thrust. States she had incontinence but it has improved a lot. Leaks w/ sneeze or cough, and usually with bladder full. If lie on side the pubic pain is very aggrevated and if lie prolonged, get hip weakness. Pubic pain with son, but it resolved quickly after . Pt is currently . Had PT for LBP during son' s and was told she had a diastasis rectus, no treatment (3 yrs ago). Taking anti-biotics for mastitis. Developmental History Developmental History Son 02/06/22, and recent of daughter 02/22/24. 2G2P. Vaginal deliveries. 2nd degree tearing with both. Birthed on back w/son and sidelying w/ daughter. Works FT. Treatment Goals Patient/Caregiver Goals Pt goals: Eliminate pelvic pain throughout the day and in sidelie. Elimate pelvic/hip pain with intercourse (deep thrust). Elimnate urinary leakage. Prior Functional Status Baseline Function- Other Severe R Sciatic pain during and flairs on the L side. 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 PT-OP-C Subjective Start: 07/15/24 18:14 Freq: Status: Active Protocol: Document 08/04/24 07:33 LRN (Rec: 08/04/24 08:22 LRN [id number]) Patient Questionnaires Pelvic Pain and Urgency/Frequency Patient Symptom Scale Pelvic Pain Score 8 OP-PT Pain Assessment Pain Assessment Grid Paper Pain Assessment Grid Completed Yes Location Low Back Pain Location Details Across the low back at sacral level Intensity 5 Scale Used Numeric (0 - 10) Lower abdomen Pain Location Details Across lower abdomen and lateral hips at pubic symphysis level Intensity 5 Scale Used Numeric (0 - 10) PT-OP-I Pelvic Floor Start: 07/15/24 18:14 Freq: Status: Active Protocol: Document 08/04/24 07:33 LRN (Rec: 08/04/24 08:22 LRN [id number]) Pelvic Floor Assessment Urine Urinary Symptoms Urge Sensation Leakage Size Small Leakage Cause Urge Other Leakage Causes Strong cough/sneeze Voiding Frequency 5-6/day Nocturia 0-1 Pads Used In 24 Hours 1 Urine Pad Type Panty Liner Bowel Bowel Symptoms Constipation Bowel Movement Frequency Every other day. Pelvic Clock Pelvic Clock 12-3 Tenderness Pelvic Clock 3-6 Tenderness Pelvic Clock 6-9 Tenderness Pelvic Clock 9-12 Tenderness Contraction Ability Manual Muscle Testing Left 1 Manual Muscle Testing Right 1 Manual Muscle Testing Anterior 0 Manual Muscle Testing Posterior 0 Muscle Endurance (Seconds) 0 Number of Quick Contractions In 10 0 Seconds PT-OP-J Posture/Palpation/Skin Start: 07/15/24 18:14 Freq: Status: Active Protocol: Document 08/04/24 07:33 LRN (Rec: 08/04/24 08:22 LRN [id number]) Posture Evaluation Position Standing Head/C-Spine Posture Forward Head Comments Posture Comments Straightened upper T/S, Dowagers Hump, L PSIS is deep and painful. Palpation Assessment Location PSIS Palpation Location L PSIS Palpation Findings Muscle Guarding,Tenderness Palpation Details Pain on palpation Abdomen Palpation Location Diastasis Rectus assessment Palpation Details Umbilicus 2 above: 2.5 finger widths Umbilicus 1 closed Umbilicus Umbilicus: 1 below: 2.0 finger widths, very shallow Umbilicus: 2 below: 1.0 finger widths, very shallow PT-OP-K Range of Motion Start: 07/15/24 18:14 Freq: Status: Active Protocol: Document 08/04/24 07:33 LRN (Rec: 08/04/24 08:22 LRN [id number]) Lumbar Spine Range of Motion Lumbar Spine Active Degrees Testing Position Standing Flexion 110 Extension 7 Rotation Left 25 Rotation Right 30 Lateral Flexion Left 13 Lateral Flexion Right 13 Hip Goniometric Range of Motion Hip Right Passive Testing Position Supine Abduction 30 Internal Rotation 30 External Rotation 75 Comments Pubic pain with end range Hip AB & KTC Left Passive Testing Position Supine Abduction 40 Internal Rotation 30 External Rotation 65 Comments Pubic pain with end range Hip AB & KTC PT-OP-M Strength Start: 07/15/24 18:14 Freq: Status: Active Protocol: Document 08/04/24 07:33 LRN (Rec: 08/04/24 08:22 LRN [id number]) Trunk Strength Trunk Manual Muscle Testing Core Stabilization Lacks core rotational stability with MMT of LE's Hip Strength Hip Manual Muscle Testing Right Flexion (L2) 5 Normal Abduction 4 Good Adduction 5 Normal External Rotation 3 Fair Internal Rotation 4+ Good+ Comments Pain in hips with resisted IR. Strength is 5/5 except as indicated above. Left Flexion (L2) 2+ Poor+ Abduction 5 Normal Adduction 2 Poor External Rotation 3 Fair Internal Rotation 4+ Good+ Comments Pain in hips with resisted IR. Strength is 5/5 except as indicated above. Hip flex limited by anterior hip pain. \ Hip AD limited by pubic symphysis pain. PT-OP-Q Treatments Start: 07/15/24 18:14 Freq: Status: Active Protocol: Document 08/04/24 07:33 LRN (Rec: 08/04/24 08:22 LRN [id number]) Self-Care/Home Management Treatment Education Other Education Discussed results of evaluation, goals, treatment, and plan of care (POC) with pt , attendance/cx/dns policy; pt agreeable to evaluation, goals, treatment, attendance/ cx/dns policy and POC. Activities Self-Care/Home Management Activities Issued & reviewed HEP: Papi ex's and discussed exercise of Quick Flicks, Long Holds and Aggravators. PT-OP-T Assessment and Plan Start: 07/15/24 18:14 Freq: Status: Active Protocol: Document 08/04/24 07:33 LRN (Rec: 08/04/24 08:22 LRN [id number]) Physical Therapy Assessment Rehab Potential Rehabilitation Potential Excellent Evaluation Complexity Number of Personal Factors/Comorbidities 0 Impairments Impairments Activity Tolerance Goals Four Impairment Pelvic pain with sleeping at night (sidelie) Short Term Goal (STG) Increase core/hip stability to decrease pelvic pain to 2/10. STG Duration 09/29/24 Training Technician Goal (LTG) Eliminate pelvic pain throughout the day and in sidelie. LTG Duration 11/24/24 Three Impairment Pelvic pain with intercourse Short Term Goal (STG) Pt will be able to decrease PF pain with self management techniques (deep breathing, foreplay, positioning, stretches). STG Duration 09/29/24 Correction Goal (LTG) Elimate pelvic/hip pain with intercourse (deep thrust). LTG Duration 11/24/24 Two Impairment Stress urinary leakage. Short Term Goal (STG) Pt will be able to demonstrate the ability to coordiate breathwork with transfer, ADLs , and BMs for best core pressure management. STG Duration 08/22/24 Training Technician Goal (LTG) Improve PF strength with pt able to perform a strong cough or sneeze without urinary leakage. LTG Duration 11/24/24 One Impairment Pt lacks an independent self care HEP. Short Term Goal (STG) Pt educated in proper transfers to lessen core abdominal pressure. STG Duration 08/22/24 Training Technician Goal (LTG) Pt will be independent in a self care HEP for PF strengthening. LTG Duration 11/24/24 Assessment Summary Assessment Pt is a 28 yo female, 5 months post-, who presents with SPD, dysparenia, LBP, and resolving stress urinary incontinence and poor core pressure management, possibly from bowel dysfunction. Pt had SPD with her 1st child who is now 2 yrs old, that she reports resolved quickly after . LBP was severe during both her pregnancies and persists post . Complicating factor is her reported 2nd degree tear during both vaginal births. The patient demonstrates decreased hip mobility and decreased hip/core strength with onset of pubic symphysis pain. Her dysparenia is probably due to PF tenderness and poor core pressure management as it appears her uterus has dropped and is felt on internal palpation (finger insert ~ 7 cm). Stress urinary incontinence is due to weak PF muscles, probably inhibited by pain. At this time it doesn't appear that she has a notable diastasis rectus, but lower TA strength is poor and might not be darren strong enough to determine if separation is present. The pt will benefit from skilled physical therapy to improve pelvic/core strength and stability, manual therapy/exercise to reduce PF pain with STM and intercourse , and to improve PF/hip/core strength to reduce or eliminate incontenince with stress. The pt will also benefit from education on self care, posture and transfer training and fluid/food management as she appears to be having constipation that needs to be addressed. Physical Therapy Plan Frequency and Duration Frequency of Treatment 1x/Week Duration of treatment (weeks) 16 Plan of Care Start Date 08/04/24 Plan of Care End Date 11/24/24 Therapeutic Interventions Therapeutic Interventions Home Exercise Program,Joint Mobilizations,Manual Therapy, Neuromuscular Re-education, Self-Care/Home Management,Soft Tissue Mobilization, Therapeutic Activities, Therapeutic Exercises Next Visit Focus/Plan Next Note Type Treatment Note Next Visit Plan Next: Review bladder diary and make recommendations as needed, Manual abdomen, PF stretching and strengthening (assess PF strength, endurance quick & long holds). Manual correct obliquities ( monitor) and when pubic symphysis stable, assess for sacral balancing. HEP: Gentle stretching: jolie hip IR, monitor L hip ER, hip AD's HEP: Strengthening for pubic symphysis/core stability. Self care/education: modalities for LBP/pub pain mgmt, transfer & body mechanics training (per pub& core pressure), posture w/ changes and posture training, ?vulvar/genital care ,
--- NOTE | 2024-08-04 18:15 | PT.OPPOC ---
Physical, Occupational & Speech Therapy At [facility] Current Diagnoses Constipation, unspecified (08/04/24) Stress incontinence (female) (male) (08/04/24) Unspecified dyspareunia (08/04/24) Unspecified condition associated with female genital organs and menstrual cycle (08/04/24) Lower abdominal pain, unspecified (08/04/24) Visit Care Team Role Provider Type Samanta Louis MD Attending Provider Physician Family Provider Primary Care Provider Referring Provider Specialty: Family Practice Address: [address] [place] [address], [facility] [place] [place], [address] Email: [email or web address] Plan Of Care PT-OP-B Current Condition Start: 07/15/24 18:14 Freq: Status: Active Protocol: Document 08/04/24 07:33 LRN (Rec: 08/04/24 08:22 LRN [id number]) Current Condition History of Current Condition Onset Date 10/2023. Current Complaints Pubic pain, pain with intercourse, stress urinary leakage. History of Current Condition Pt reports having daughter in January (02/22/24) and had severe Pelvic pain (pointing to pubs ), and now still struggles with it when lying on side and occasionally thorughout the day in a sit position (no pain with standing or walking). She reports internal pelvic pain with sexual intercourse ( missionary position or any position the legs are spread gets hip pain) with deep thrust. States she had incontinence but it has improved a lot. Leaks w/ sneeze or cough, and usually with bladder full. If lie on side the pubic pain is very aggrevated and if lie prolonged, get hip weakness. Pubic pain with son, but it resolved quickly after . Pt is currently . Had PT for LBP during son' s and was told she had a diastasis rectus, no treatment (3 yrs ago). Taking anti-biotics for mastitis. Developmental History Developmental History Son 02/06/22, and recent of daughter 02/22/24. 2G2P. Vaginal deliveries. 2nd degree tearing with both. Birthed on back w/son and sidelying w/ daughter. Works FT. Treatment Goals Patient/Caregiver Goals Pt goals: Eliminate pelvic pain throughout the day and in sidelie. Elimate pelvic/hip pain with intercourse (deep thrust). Elimnate urinary leakage. Prior Functional Status Baseline Function- Other Severe R Sciatic pain during and flairs on the L side. 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 PT-OP-T Assessment and Plan Start: 07/15/24 18:14 Freq: Status: Active Protocol: Document 08/04/24 07:33 LRN (Rec: 08/04/24 08:22 LRN [id number]) Physical Therapy Assessment Rehab Potential Rehabilitation Potential Excellent Evaluation Complexity Number of Personal Factors/Comorbidities 0 Impairments Impairments Activity Tolerance Goals Four Impairment Pelvic pain with sleeping at night (sidelie) Short Term Goal (STG) Increase core/hip stability to decrease pelvic pain to 2/10. STG Duration 09/29/24 Mcfp Goal (LTG) Eliminate pelvic pain throughout the day and in sidelie. LTG Duration 11/24/24 Three Impairment Pelvic pain with intercourse Short Term Goal (STG) Pt will be able to decrease PF pain with self management techniques (deep breathing, foreplay, positioning, stretches). STG Duration 09/29/24 Mcfp Goal (LTG) Elimate pelvic/hip pain with intercourse (deep thrust). LTG Duration 11/24/24 Two Impairment Stress urinary leakage. Short Term Goal (STG) Pt will be able to demonstrate the ability to coordiate breathwork with transfer, ADLs , and BMs for best core pressure management. STG Duration 08/22/24 Insulation Estimator Goal (LTG) Improve PF strength with pt able to perform a strong cough or sneeze without urinary leakage. LTG Duration 11/24/24 One Impairment Pt lacks an independent self care HEP. Short Term Goal (STG) Pt educated in proper transfers to lessen core abdominal pressure. STG Duration 08/22/24 Mcfp Goal (LTG) Pt will be independent in a self care HEP for PF strengthening. LTG Duration 11/24/24 Assessment Summary Assessment Pt is a 28 yo female, 5 months post-, who presents with SPD, dysparenia, LBP, and resolving stress urinary incontinence and poor core pressure management, possibly from bowel dysfunction. Pt had SPD with her 1st child who is now 2 yrs old, that she reports resolved quickly after . LBP was severe during both her pregnancies and persists post . Complicating factor is her reported 2nd degree tear during both vaginal births. The patient demonstrates decreased hip mobility and decreased hip/core strength with onset of pubic symphysis pain. Her dysparenia is probably due to PF tenderness and poor core pressure management as it appears her uterus has dropped and is felt on internal palpation (finger insert ~ 7 cm). Stress urinary incontinence is due to weak PF muscles, probably inhibited by pain. At this time it doesn't appear that she has a notable diastasis rectus, but lower TA strength is poor and might not be darren strong enough to determine if separation is present. The pt will benefit from skilled physical therapy to improve pelvic/core strength and stability, manual therapy/exercise to reduce PF pain with STM and intercourse , and to improve PF/hip/core strength to reduce or eliminate incontenince with stress. The pt will also benefit from education on self care, posture and transfer training and fluid/food management as she appears to be having constipation that needs to be addressed. Physical Therapy Plan Frequency and Duration Frequency of Treatment 1x/Week Duration of treatment (weeks) 16 Plan of Care Start Date 08/04/24 Plan of Care End Date 11/24/24 Therapeutic Interventions Therapeutic Interventions Home Exercise Program,Joint Mobilizations,Manual Therapy, Neuromuscular Re-education, Self-Care/Home Management,Soft Tissue Mobilization, Therapeutic Activities, Therapeutic Exercises Next Visit Focus/Plan Next Note Type Treatment Note Next Visit Plan Next: Review bladder diary and make recommendations as needed, Manual abdomen, PF stretching and strengthening (assess PF strength, endurance quick & long holds). Manual correct obliquities ( monitor) and when pubic symphysis stable, assess for sacral balancing. HEP: Gentle stretching: jolie hip IR, monitor L hip ER, hip AD's HEP: Strengthening for pubic symphysis/core stability. Self care/education: modalities for LBP/pub pain mgmt, transfer & body mechanics training (per pub& core pressure), posture w/ changes and posture training, ?vulvar/genital care , Plan of Care Dates Plan of Care Start Date 08/04/24 Plan of Care End Date 11/24/24 Electronically Signed by: Jennifer Ocampo, PT 08/05/24 4027 If you are in agreement with this Plan of Care, please return a signed and dated copy. I have reviewed this Plan of Care and certify that the skilled therapy services above are required to meet the patient?s needs. Physician Signature Date Printed Name and Credentials Clinical Instructor Signature Printed Name and Credentials
--- NOTE | 2024-08-08 17:13 | PT.OTN ---
Current Diagnoses Constipation, unspecified (08/08/24) Stress incontinence (female) (male) (08/08/24) Unspecified dyspareunia (08/08/24) Unspecified condition associated with female genital organs and menstrual cycle (08/08/24) Lower abdominal pain, unspecified (08/08/24) Physical Therapy Treatment Note PT-OP-A Visit Information Start: 07/15/24 18:14 Freq: Status: Active Protocol: Document 08/08/24 10:39 LRN (Rec: 08/08/24 11:22 LRN [id number]) Out-Patient Physical Therapy Visit Information Visit Information Visit Type Treatment Note Visit Start Time 10:40 Visit Stop Time 11:23 Visit Number 2 Evaluation Information Evaluation Date 08/04/24 Precautions Precautions Tape allergies, seizures, depression/anxiety controlled by meds, thyroid disorder, back & neck pain. PT-OP-B Current Condition Start: 07/15/24 18:14 Freq: Status: Active Protocol: Document 08/04/24 07:33 LRN (Rec: 08/04/24 08:22 LRN [id number]) Current Condition History of Current Condition Onset Date 10/2023. Current Complaints Pubic pain, pain with intercourse, stress urinary leakage. History of Current Condition Pt reports having daughter in January (02/22/24) and had severe Pelvic pain (pointing to pubs ), and now still struggles with it when lying on side and occasionally thorughout the day in a sit position (no pain with standing or walking). She reports internal pelvic pain with sexual intercourse ( missionary position or any position the legs are spread gets hip pain) with deep thrust. States she had incontinence but it has improved a lot. Leaks w/ sneeze or cough, and usually with bladder full. If lie on side the pubic pain is very aggrevated and if lie prolonged, get hip weakness. Pubic pain with son, but it resolved quickly after . Pt is currently . Had PT for LBP during son' s and was told she had a diastasis rectus, no treatment (3 yrs ago). Taking anti-biotics for mastitis. Developmental History Developmental History Son 02/06/22, and recent of daughter 02/22/24. 2G2P. Vaginal deliveries. 2nd degree tearing with both. Birthed on back w/son and sidelying w/ daughter. Works FT. Treatment Goals Patient/Caregiver Goals Pt goals: Eliminate pelvic pain throughout the day and in sidelie. Elimate pelvic/hip pain with intercourse (deep thrust). Elimnate urinary leakage. Prior Functional Status Baseline Function- Other Severe R Sciatic pain during and flairs on the L side. 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 PT-OP-C Subjective Start: 07/15/24 18:14 Freq: Status: Active Protocol: Document 08/08/24 10:39 LRN (Rec: 08/08/24 11:22 LRN [id number]) OP-PT Subjective Patient Comments Patient Comments No changes, doing exercises. Hasn't had a chance to do bladder diary, because doing a lot of home visits for work. PT-OP-I Pelvic Floor Start: 07/15/24 18:14 Freq: Status: Active Protocol: Document 08/04/24 07:33 LRN (Rec: 08/04/24 08:22 LRN [id number]) Pelvic Floor Assessment Urine Urinary Symptoms Urge Sensation Leakage Size Small Leakage Cause Urge Other Leakage Causes Strong cough/sneeze Voiding Frequency 5-6/day Nocturia 0-1 Pads Used In 24 Hours 1 Urine Pad Type Panty Liner Bowel Bowel Symptoms Constipation Bowel Movement Frequency Every other day. Pelvic Clock Pelvic Clock 12-3 Tenderness Pelvic Clock 3-6 Tenderness Pelvic Clock 6-9 Tenderness Pelvic Clock 9-12 Tenderness Contraction Ability Manual Muscle Testing Left 1 Manual Muscle Testing Right 1 Manual Muscle Testing Anterior 0 Manual Muscle Testing Posterior 0 Muscle Endurance (Seconds) 0 Number of Quick Contractions In 10 0 Seconds PT-OP-J Posture/Palpation/Skin Start: 07/15/24 18:14 Freq: Status: Active Protocol: Document 08/04/24 07:33 LRN (Rec: 08/04/24 08:22 LRN [id number]) Posture Evaluation Position Standing Head/C-Spine Posture Forward Head Comments Posture Comments Straightened upper T/S, Dowagers Hump, L PSIS is deep and painful. Palpation Assessment Location PSIS Palpation Location L PSIS Palpation Findings Muscle Guarding,Tenderness Palpation Details Pain on palpation Abdomen Palpation Location Diastasis Rectus assessment Palpation Details Umbilicus 2 above: 2.5 finger widths Umbilicus 1 closed Umbilicus Umbilicus: 1 below: 2.0 finger widths, very shallow Umbilicus: 2 below: 1.0 finger widths, very shallow PT-OP-K Range of Motion Start: 07/15/24 18:14 Freq: Status: Active Protocol: Document 08/04/24 07:33 LRN (Rec: 08/04/24 08:22 LRN [id number]) Lumbar Spine Range of Motion Lumbar Spine Active Degrees Testing Position Standing Flexion 110 Extension 7 Rotation Left 25 Rotation Right 30 Lateral Flexion Left 13 Lateral Flexion Right 13 Hip Goniometric Range of Motion Hip Right Passive Testing Position Supine Abduction 30 Internal Rotation 30 External Rotation 75 Comments Pubic pain with end range Hip AB & KTC Left Passive Testing Position Supine Abduction 40 Internal Rotation 30 External Rotation 65 Comments Pubic pain with end range Hip AB & KTC PT-OP-M Strength Start: 07/15/24 18:14 Freq: Status: Active Protocol: Document 08/04/24 07:33 LRN (Rec: 08/04/24 08:22 LRN [id number]) Trunk Strength Trunk Manual Muscle Testing Core Stabilization Lacks core rotational stability with MMT of LE's Hip Strength Hip Manual Muscle Testing Right Flexion (L2) 5 Normal Abduction 4 Good Adduction 5 Normal External Rotation 3 Fair Internal Rotation 4+ Good+ Comments Pain in hips with resisted IR. Strength is 5/5 except as indicated above. Left Flexion (L2) 2+ Poor+ Abduction 5 Normal Adduction 2 Poor External Rotation 3 Fair Internal Rotation 4+ Good+ Comments Pain in hips with resisted IR. Strength is 5/5 except as indicated above. Hip flex limited by anterior hip pain. \ Hip AD limited by pubic symphysis pain. PT-OP-Q Treatments Start: 07/15/24 18:14 Freq: Status: Active Protocol: Document 08/08/24 10:39 LRN (Rec: 08/08/24 11:22 LRN [id number]) Therapeutic Exercises Supine Exercises Tom BKFO/TB Equipment Used Lev 2 TB Reps/Minutes 10x Sidelying Exercises TA tightening Sidelying Exercise Name TA with breath Side bilateral Reps/Minutes 3 breath hold x 10 Comments Cued to hold core tight w/ breath (chest breathing) Clamshell Sidelying Exercise Name Pop in L hip jt w/pain on first lift; discontinued ex to assess pain. Reps/Minutes 4' Comments Extra time taken to resolve pain Other Exercises 4 pt TA Other Exercise Name Exhale/Kegel/TA >hold through 3 breaths. Reps/Minutes 3 breath hold x 10 Comments Cued for TA hold through breath and exhale w/Kegel to start Therapeutic Activity Therapeutic Activity Transfer training Name Sup<>sit<>stand with breathing exhale/keeping knees/feet together. Reps/Minutes 16' Comments Practiced transfers several times and transfers as if at home in bed. Pt needed training for moving to opp sides of baby and for when getting out of bed when baby is on outside. Self-Care/Home Management Treatment Activities Self-Care/Home Management Activities Issued smaller bladder diary log for pt to use on the go and requested pt transfer to large log at end of day. Issued & reviewed HEP: TA strengthening in 4 pt and wrote I/s for sidelie. PT-OP-T Assessment and Plan Start: 07/15/24 18:14 Freq: Status: Active Protocol: Document 08/08/24 10:39 LRN (Rec: 08/08/24 11:22 LRN [id number]) Physical Therapy Assessment Goals Four Impairment Pelvic pain with sleeping at night (sidelie) Short Term Goal (STG) Increase core/hip stability to decrease pelvic pain to 2/10. STG Duration 09/29/24 Alf Goal (LTG) Eliminate pelvic pain throughout the day and in sidelie. LTG Duration 11/24/24 Three Impairment Pelvic pain with intercourse Short Term Goal (STG) Pt will be able to decrease PF pain with self management techniques (deep breathing, foreplay, positioning, stretches). STG Duration 09/29/24 Alf Goal (LTG) Elimate pelvic/hip pain with intercourse (deep thrust). LTG Duration 11/24/24 Two Impairment Stress urinary leakage. Short Term Goal (STG) Pt will be able to demonstrate the ability to coordiate breathwork with transfer, ADLs , and BMs for best core pressure management. 08/08/24: Educated in core pressure mgmt w/transfer STG Duration 08/22/24 progressed 08/08/24 (need ed w/ADLs, & BM's) Director Religious Education Goal (LTG) Improve PF strength with pt able to perform a strong cough or sneeze without urinary leakage. 08/08/24: Reviewed 08/04/24 issued HEP: Kegels (Quick, Long Hold & Aggrevators). LTG Duration 11/24/24 progressed 08/08/24 One Impairment Pt lacks an independent self care HEP. Short Term Goal (STG) Pt educated in proper transfers to lessen core abdominal pressure. 08/08/24: Educated in core pressure mgmt w/transfer STG Duration 08/22/24 (08/08/24: MET GOAL) Director Religious Education Goal (LTG) Pt will be independent in a self care HEP for PF strengthening. 08/08/24: Reviewed 08/04/24 issued HEP: Kegels (Quick, Long Hold & Aggrevators). Added TA strengthening w/sayra hip AB in supine and 4 pt TA. LTG Duration 11/24/24 progressed 08/08/24 Assessment Summary Assessment 28 yo female, 5 months post- , who presents with SPD (since of first child), dysparenia, LBP, and resolving stress urinary incontinence and poor core pressure management, possibly from bowel dysfunction; 2nd degree tear during both vaginal births. .Decr'd hip mobility and strength, dec'd core strength, PF tenderness, poor core pressure mgmt w/uterus drop, DR not evident. Today she was not able to perform a sidelie clamshell due to Pubic Symphysis instability, but was able to tolerate supine and 4pt TA strengthening with sayra hip AB. Physical Therapy Plan Frequency and Duration Frequency of Treatment 1x/Week Next Visit Focus/Plan Next Note Type Treatment Note Next Visit Plan Next: Review bladder diary and make recommendations as needed, Check if blue stap could decrease pelvic/hip pain for stabilization at pube. Address for bowel dysfunction. Manual: abdomen, & PF stretching and strengthening ( assess PF strength, endurance quick & long holds). Manual correct obliquities ( monitor) and when pubic symphysis stable, assess for sacral balancing. HEP: Gentle stretching: tom hip IR, monitor L hip ER, hip AD's HEP: Strengthening for pubic symphysis/core stability. Self care/education: modalities for LBP/pub pain mgmt, transfer & body mechanics training (per pub& core pressure), posture w/ changes and posture training, ?vulvar/genital care ,
--- NOTE | 2024-08-22 17:10 | PT.OTN ---
Current Diagnoses Constipation, unspecified (08/22/24) Stress incontinence (female) (male) (08/22/24) Unspecified dyspareunia (08/22/24) Unspecified condition associated with female genital organs and menstrual cycle (08/22/24) Lower abdominal pain, unspecified (08/22/24) Physical Therapy Treatment Note PT-OP-A Visit Information Start: 07/15/24 18:14 Freq: Status: Active Protocol: Document 08/22/24 10:34 LRN (Rec: 08/22/24 11:20 LRN [id number]) Out-Patient Physical Therapy Visit Information Visit Information Visit Type Treatment Note Visit Start Time 10:34 Visit Stop Time 11:13 Visit Number 3 Evaluation Information Evaluation Date 08/04/24 Precautions Precautions Tape allergies, seizures, depression/anxiety controlled by meds, thyroid disorder, back & neck pain. PT-OP-B Current Condition Start: 07/15/24 18:14 Freq: Status: Active Protocol: Document 08/04/24 07:33 LRN (Rec: 08/04/24 08:22 LRN [id number]) Current Condition History of Current Condition Onset Date 10/2023. Current Complaints Pubic pain, pain with intercourse, stress urinary leakage. History of Current Condition Pt reports having daughter in January (02/22/24) and had severe Pelvic pain (pointing to pubs ), and now still struggles with it when lying on side and occasionally thorughout the day in a sit position (no pain with standing or walking). She reports internal pelvic pain with sexual intercourse ( missionary position or any position the legs are spread gets hip pain) with deep thrust. States she had incontinence but it has improved a lot. Leaks w/ sneeze or cough, and usually with bladder full. If lie on side the pubic pain is very aggrevated and if lie prolonged, get hip weakness. Pubic pain with son, but it resolved quickly after . Pt is currently . Had PT for LBP during son' s and was told she had a diastasis rectus, no treatment (3 yrs ago). Taking anti-biotics for mastitis. Developmental History Developmental History Son 02/06/22, and recent of daughter 02/22/24. 2G2P. Vaginal deliveries. 2nd degree tearing with both. Birthed on back w/son and sidelying w/ daughter. Works FT. Treatment Goals Patient/Caregiver Goals Pt goals: Eliminate pelvic pain throughout the day and in sidelie. Elimate pelvic/hip pain with intercourse (deep thrust). Elimnate urinary leakage. Prior Functional Status Baseline Function- Other Severe R Sciatic pain during and flairs on the L side. 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 PT-OP-C Subjective Start: 07/15/24 18:14 Freq: Status: Active Protocol: Document 08/22/24 10:34 LRN (Rec: 08/22/24 11:20 LRN [id number]) OP-PT Subjective Patient Comments Patient Comments States she thinks she is having allergy problems. Didn' t do the log. Has been doing the ex's. Pain in middle of the abdomen is less when moving and getting up/down ( mainly feels it when on her side) but hips the same. Haven't noticed urinary leakage for a couple of weeks. States she hasn't had urinary leakage for last 2 weeks and doesn't have to cross her knees when sneezing or coughing. PT-OP-I Pelvic Floor Start: 07/15/24 18:14 Freq: Status: Active Protocol: Document 08/04/24 07:33 LRN (Rec: 08/04/24 08:22 LRN [id number]) Pelvic Floor Assessment Urine Urinary Symptoms Urge Sensation Leakage Size Small Leakage Cause Urge Other Leakage Causes Strong cough/sneeze Voiding Frequency 5-6/day Nocturia 0-1 Pads Used In 24 Hours 1 Urine Pad Type Panty Liner Bowel Bowel Symptoms Constipation Bowel Movement Frequency Every other day. Pelvic Clock Pelvic Clock 12-3 Tenderness Pelvic Clock 3-6 Tenderness Pelvic Clock 6-9 Tenderness Pelvic Clock 9-12 Tenderness Contraction Ability Manual Muscle Testing Left 1 Manual Muscle Testing Right 1 Manual Muscle Testing Anterior 0 Manual Muscle Testing Posterior 0 Muscle Endurance (Seconds) 0 Number of Quick Contractions In 10 0 Seconds PT-OP-J Posture/Palpation/Skin Start: 07/15/24 18:14 Freq: Status: Active Protocol: Document 08/04/24 07:33 LRN (Rec: 08/04/24 08:22 LRN [id number]) Posture Evaluation Position Standing Head/C-Spine Posture Forward Head Comments Posture Comments Straightened upper T/S, Dowagers Hump, L PSIS is deep and painful. Palpation Assessment Location PSIS Palpation Location L PSIS Palpation Findings Muscle Guarding,Tenderness Palpation Details Pain on palpation Abdomen Palpation Location Diastasis Rectus assessment Palpation Details Umbilicus 2 above: 2.5 finger widths Umbilicus 1 closed Umbilicus Umbilicus: 1 below: 2.0 finger widths, very shallow Umbilicus: 2 below: 1.0 finger widths, very shallow PT-OP-K Range of Motion Start: 07/15/24 18:14 Freq: Status: Active Protocol: Document 08/04/24 07:33 LRN (Rec: 08/04/24 08:22 LRN [id number]) Lumbar Spine Range of Motion Lumbar Spine Active Degrees Testing Position Standing Flexion 110 Extension 7 Rotation Left 25 Rotation Right 30 Lateral Flexion Left 13 Lateral Flexion Right 13 Hip Goniometric Range of Motion Hip Right Passive Testing Position Supine Abduction 30 Internal Rotation 30 External Rotation 75 Comments Pubic pain with end range Hip AB & KTC Left Passive Testing Position Supine Abduction 40 Internal Rotation 30 External Rotation 65 Comments Pubic pain with end range Hip AB & KTC PT-OP-M Strength Start: 07/15/24 18:14 Freq: Status: Active Protocol: Document 08/04/24 07:33 LRN (Rec: 08/04/24 08:22 LRN [id number]) Trunk Strength Trunk Manual Muscle Testing Core Stabilization Lacks core rotational stability with MMT of LE's Hip Strength Hip Manual Muscle Testing Right Flexion (L2) 5 Normal Abduction 4 Good Adduction 5 Normal External Rotation 3 Fair Internal Rotation 4+ Good+ Comments Pain in hips with resisted IR. Strength is 5/5 except as indicated above. Left Flexion (L2) 2+ Poor+ Abduction 5 Normal Adduction 2 Poor External Rotation 3 Fair Internal Rotation 4+ Good+ Comments Pain in hips with resisted IR. Strength is 5/5 except as indicated above. Hip flex limited by anterior hip pain. \ Hip AD limited by pubic symphysis pain. PT-OP-Q Treatments Start: 07/15/24 18:14 Freq: Status: Active Protocol: Document 08/22/24 10:34 LRN (Rec: 08/22/24 11:20 LRN [id number]) Therapeutic Exercises Supine Exercises TA tightening Reps/Minutes 10 SH x 2 Comments Pt able to perform correctly, holding for 5 breaths Hands/knees push Supine Exercise Name Hands/knees push with Ball, legs 90/90 Reps/Minutes 10 SH (3 breaths) x 15 Sidelying Exercises Clamshell Sidelying Exercise Name TA/Clamshell w/Blue strap around pub symphysis Reps/Minutes 10x each Sitting Exercises Tom BKFO/TB sayra Equipment Used Lev 2 TB Reps/Minutes 10 SH (3-5 breaths) x 10 Therapeutic Activity Therapeutic Activity Transfer training Name Sup<>sit<>stand with breathing exhale/keeping knees/feet together. Reps/Minutes 3' Self-Care/Home Management Treatment Education Other Education Educated and practiced until pt able to demonstrate the ability to coordinate breathwork with ADLs, and verbally indicate w/BMs for best core pressure management. Discussed/educated pt in use of SI Compressor belt (OPTP) with handout issued for use during the day if having pubic pain. Activities Self-Care/Home Management Activities Issue and reviewed handout for ADLS, coordinating breath/ Kegel with activity PT-OP-T Assessment and Plan Start: 07/15/24 18:14 Freq: Status: Active Protocol: Document 08/22/24 10:34 LRN (Rec: 08/22/24 11:20 LRN [id number]) Physical Therapy Assessment Goals Four Impairment Pelvic pain with sleeping at night (sidelie) Short Term Goal (STG) Increase core/hip stability to decrease pelvic pain to 2/10. STG Duration 09/29/24 [facility] Goal (LTG) Eliminate pelvic pain throughout the day and in sidelie. LTG Duration 11/24/24 Three Impairment Pelvic pain with intercourse Short Term Goal (STG) Pt will be able to decrease PF pain with self management techniques (deep breathing, foreplay, positioning, stretches). STG Duration 09/29/24 [facility] Goal (LTG) Elimate pelvic/hip pain with intercourse (deep thrust). LTG Duration 11/24/24 Two Impairment Stress urinary leakage. Short Term Goal (STG) Pt will be able to demonstrate the ability to coordiate breathwork with transfer, ADLs , and BMs for best core pressure management. 08/08/24: Educated in core pressure mgmt w/transfer. 08/22/24: Pt able to demonstrate coordination of breathwork with transfers after review. STG Duration 08/22/24 progressed 08/22/24 (need ed w/ADLs, & BM's) [facility] Goal (LTG) Improve PF strength with pt able to perform a strong cough or sneeze without urinary leakage. 08/08/24: Reviewed 08/04/24 issued HEP: Kegels (Quick, Long Hold & Aggrevators). 08/22/24: Doesn't leak with coughing or sneezing and doesn 't feel like she even has to cross her legs. LTG Duration 11/24/24 (08/22/24: MET GOAL) One Impairment Pt lacks an independent self care HEP. Short Term Goal (STG) Pt educated in proper transfers to lessen core abdominal pressure. 08/08/24: Educated in core pressure mgmt w/transfer STG Duration 08/22/24 (08/08/24: MET GOAL) Mandarin Tutor Goal (LTG) Pt will be independent in a self care HEP for PF strengthening. 08/08/24: Reviewed 08/04/24 issued HEP: Kegels (Quick, Long Hold & Aggrevators). Added TA strengthening w/sayra hip AB in supine and 4 pt TA. LTG Duration 11/24/24 progressed 08/08/24 Assessment Summary Assessment 28 yo female, 5 months post- , who presents with SPD (since of first child), dysparenia, LBP, and resolving stress urinary incontinence and poor core pressure management, possibly from bowel dysfunction; 2nd degree tear during both vaginal births. Decr'd hip mobility and strength, dec'd core strength, PF tenderness, poor core pressure mgmt w/uterus drop, DR not evident. Today, improvement noted with pt reporting no urinary leakage with cough/sneeze for past 2 weeks. With blue strap in sidelie, no onset of pub pain. Pt has no pube pain with walking; therefore she is choosing to no purchase a SI strap for pubic pain. Pt states she does not strain to have BM and uses stool softner and breathing to have BM. Physical Therapy Plan Frequency and Duration Frequency of Treatment 1x/Week Duration of treatment (weeks) 16 Plan of Care Start Date 08/04/24 Plan of Care End Date 11/24/24 Next Visit Focus/Plan Next Note Type Treatment Note Next Visit Plan Next: Review bladder diary and make recommendations as needed. Manual: abdomen, & PF stretching and strengthening ( assess PF strength, endurance quick & long holds). Manual correct obliquities ( monitor) and when pubic symphysis stable, assess for sacral balancing. HEP: Gentle stretching: tom hip IR, monitor L hip ER, hip AD's HEP: Strengthening for pubic symphysis/core stability. Self care/education: modalities for LBP/pub pain mgmt, transfer & body mechanics training (per pub& core pressure), posture w/ changes and posture training, ?vulvar/genital care ,
--- NOTE | 2024-11-27 17:58 | PT-OP ANOTE ---
Per telecon, pt reports she and family had been sick for 2 months and now will be moving to [place] in 2 weeks. Pt plans to seek physical therapy in her new location. Pt agreeable to discharge from PT.
--- NOTE | 2024-12-08 11:19 | PT.OPDS ---
Current Diagnoses Constipation, unspecified (08/22/24) Stress incontinence (female) (male) (08/22/24) Unspecified dyspareunia (08/22/24) Unspecified condition associated with female genital organs and menstrual cycle (08/22/24) Lower abdominal pain, unspecified (08/22/24) Visit Care Team Role Provider Type Samanta Louis MD Attending Provider Physician Family Provider Primary Care Provider Referring Provider Specialty: [facility] Practice Address: [address] [place] [address], [facility], [place], [address] Email: [email or web address] Visit Number Visit Number 3 Discharge Summary PT-OP-B Current Condition Start: 07/15/24 18:14 Freq: Status: Active Protocol: Document 08/04/24 07:33 LRN (Rec: 08/04/24 08:22 LRN [id number]) Current Condition History of Current Condition Onset Date 10/2023. Current Complaints Pubic pain, pain with intercourse, stress urinary leakage. History of Current Condition Pt reports having daughter in January (02/22/24) and had severe Pelvic pain (pointing to pubs ), and now still struggles with it when lying on side and occasionally thorughout the day in a sit position (no pain with standing or walking). She reports internal pelvic pain with sexual intercourse ( missionary position or any position the legs are spread gets hip pain) with deep thrust. States she had incontinence but it has improved a lot. Leaks w/ sneeze or cough, and usually with bladder full. If lie on side the pubic pain is very aggrevated and if lie prolonged, get hip weakness. Pubic pain with son, but it resolved quickly after . Pt is currently . Had PT for LBP during son' s and was told she had a diastasis rectus, no treatment (3 yrs ago). Taking anti-biotics for mastitis. Developmental History Developmental History Son 02/06/22, and recent of daughter 02/22/24. 2G2P. Vaginal deliveries. 2nd degree tearing with both. Birthed on back w/son and sidelying w/ daughter. Works FT. Treatment Goals Patient/Caregiver Goals Pt goals: Eliminate pelvic pain throughout the day and in sidelie. Elimate pelvic/hip pain with intercourse (deep thrust). Elimnate urinary leakage. Prior Functional Status Baseline Function- Other Severe R Sciatic pain during and flairs on the L side. 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 PT-OP-C Subjective Start: 07/15/24 18:14 Freq: Status: Active Protocol: Document 08/22/24 10:34 LRN (Rec: 08/22/24 11:20 LRN [id number]) OP-PT Subjective Patient Comments Patient Comments States she thinks she is having allergy problems. Didn' t do the log. Has been doing the ex's. Pain in middle of the abdomen is less when moving and getting up/down ( mainly feels it when on her side) but hips the same. Haven't noticed urinary leakage for a couple of weeks. States she hasn't had urinary leakage for last 2 weeks and doesn't have to cross her knees when sneezing or coughing. PT-OP-I Pelvic Floor Start: 07/15/24 18:14 Freq: Status: Active Protocol: Document 08/04/24 07:33 LRN (Rec: 08/04/24 08:22 LRN [id number]) Pelvic Floor Assessment Urine Urinary Symptoms Urge Sensation Leakage Size Small Leakage Cause Urge Other Leakage Causes Strong cough/sneeze Voiding Frequency 5-6/day Nocturia 0-1 Pads Used In 24 Hours 1 Urine Pad Type Panty Liner Bowel Bowel Symptoms Constipation Bowel Movement Frequency Every other day. Pelvic Clock Pelvic Clock 12-3 Tenderness Pelvic Clock 3-6 Tenderness Pelvic Clock 6-9 Tenderness Pelvic Clock 9-12 Tenderness Contraction Ability Manual Muscle Testing Left 1 Manual Muscle Testing Right 1 Manual Muscle Testing Anterior 0 Manual Muscle Testing Posterior 0 Muscle Endurance (Seconds) 0 Number of Quick Contractions In 10 0 Seconds PT-OP-J Posture/Palpation/Skin Start: 07/15/24 18:14 Freq: Status: Active Protocol: Document 08/04/24 07:33 LRN (Rec: 08/04/24 08:22 LRN [id number]) Posture Evaluation Position Standing Head/C-Spine Posture Forward Head Comments Posture Comments Straightened upper T/S, Dowagers Hump, L PSIS is deep and painful. Palpation Assessment Location PSIS Palpation Location L PSIS Palpation Findings Muscle Guarding,Tenderness Palpation Details Pain on palpation Abdomen Palpation Location Diastasis Rectus assessment Palpation Details Umbilicus 2 above: 2.5 finger widths Umbilicus 1 closed Umbilicus Umbilicus: 1 below: 2.0 finger widths, very shallow Umbilicus: 2 below: 1.0 finger widths, very shallow PT-OP-K Range of Motion Start: 07/15/24 18:14 Freq: Status: Active Protocol: Document 08/04/24 07:33 LRN (Rec: 08/04/24 08:22 LRN [id number]) Lumbar Spine Range of Motion Lumbar Spine Active Degrees Testing Position Standing Flexion 110 Extension 7 Rotation Left 25 Rotation Right 30 Lateral Flexion Left 13 Lateral Flexion Right 13 Hip Goniometric Range of Motion Hip Right Passive Testing Position Supine Abduction 30 Internal Rotation 30 External Rotation 75 Comments Pubic pain with end range Hip AB & KTC Left Passive Testing Position Supine Abduction 40 Internal Rotation 30 External Rotation 65 Comments Pubic pain with end range Hip AB & KTC PT-OP-M Strength Start: 07/15/24 18:14 Freq: Status: Active Protocol: Document 08/04/24 07:33 LRN (Rec: 08/04/24 08:22 LRN [id number]) Trunk Strength Trunk Manual Muscle Testing Core Stabilization Lacks core rotational stability with MMT of LE's Hip Strength Hip Manual Muscle Testing Right Flexion (L2) 5 Normal Abduction 4 Good Adduction 5 Normal External Rotation 3 Fair Internal Rotation 4+ Good+ Comments Pain in hips with resisted IR. Strength is 5/5 except as indicated above. Left Flexion (L2) 2+ Poor+ Abduction 5 Normal Adduction 2 Poor External Rotation 3 Fair Internal Rotation 4+ Good+ Comments Pain in hips with resisted IR. Strength is 5/5 except as indicated above. Hip flex limited by anterior hip pain. \ Hip AD limited by pubic symphysis pain. PT-OP-T Assessment and Plan Start: 07/15/24 18:14 Freq: Status: Active Protocol: Document 12/08/24 11:15 LRN (Rec: 12/08/24 11:19 LRN [id number]) Physical Therapy Assessment Goals Four Impairment Pelvic pain with sleeping at night (sidelie) Short Term Goal (STG) Increase core/hip stability to decrease pelvic pain to 2/10. STG Duration 09/29/24 Utility Gelatin Maker Goal (LTG) Eliminate pelvic pain throughout the day and in sidelie. LTG Duration 11/24/24 Three Impairment Pelvic pain with intercourse Short Term Goal (STG) Pt will be able to decrease PF pain with self management techniques (deep breathing, foreplay, positioning, stretches). STG Duration 09/29/24 Utility Gelatin Maker Goal (LTG) Elimate pelvic/hip pain with intercourse (deep thrust). LTG Duration 11/24/24 Two Impairment Stress urinary leakage. Short Term Goal (STG) Pt will be able to demonstrate the ability to coordiate breathwork with transfer, ADLs , and BMs for best core pressure management. 08/08/24: Educated in core pressure mgmt w/transfer. 08/22/24: Pt able to demonstrate coordination of breathwork with transfers after review. STG Duration 08/22/24 progressed 08/22/24 (need ed w/ADLs, & BM's) Utility Gelatin Maker Goal (LTG) Improve PF strength with pt able to perform a strong cough or sneeze without urinary leakage. 08/08/24: Reviewed 08/04/24 issued HEP: Kegels (Quick, Long Hold & Aggrevators). 08/22/24: Doesn't leak with coughing or sneezing and doesn 't feel like she even has to cross her legs. LTG Duration 11/24/24 (08/22/24: MET GOAL) One Impairment Pt lacks an independent self care HEP. Short Term Goal (STG) Pt educated in proper transfers to lessen core abdominal pressure. 08/08/24: Educated in core pressure mgmt w/transfer STG Duration 08/22/24 (08/08/24: MET GOAL) Group Home Goal (LTG) Pt will be independent in a self care HEP for PF strengthening. 08/08/24: Reviewed 08/04/24 issued HEP: Kegels (Quick, Long Hold & Aggrevators). Added TA strengthening w/sayra hip AB in supine and 4 pt TA. LTG Duration 11/24/24 progressed 08/08/24 Assessment Summary Assessment Pt has been seen for 2 treatment visits with her last attended visit on 08/22/24. Per phone conversation , pt reported she and family had been sick for 2 months and now will be moving to [place] in 2 weeks, therefore most goals were not met. Pt plans to seek physical therapy in her new location. Pt agreeable to discharge from PT . Physical Therapy Plan Discharge Physical Therapy Discharge Reasons No Longer Attending PT Discharge Comments See assessment above. Thank you for your referral.
== END 2024-12-11 11:12 | disposition home or self-care (01) ==
LOC: PHYS 10:30
PROVIDERS: Family Provider Family Medicine; PCP Family Medicine; Referring Provider Family Medicine; Visit Provider Family Medicine
DX: N94.9 Unspecified condition associated with female genital organs and menstrual cycle (principal); N39.3 Stress incontinence (female) (male); R10.30 Lower abdominal pain, unspecified; K59.00 Constipation, unspecified; N94.10 Unspecified dyspareunia
CPT/HCPCS: 97110; 97162; 97530; 97535